=== PATIENT | male | born 1990 | race Caucasian/White ===

== ENCOUNTER 2020-07-16 15:11 | Outpatient (REF) | payer OTHER, SELFPAY | END 2020-07-16 15:12 | disposition home or self-care (01) | LOC: HO.LAB 15:11 | PROVIDERS: Visit Provider Internal Medicine | DX: Z20.828 Contact with and (suspected) exposure to other viral communicable diseases (principal) | CPT/HCPCS: 87635; C9803; U0003 ==

== ENCOUNTER 2020-09-11 14:43 | Outpatient (REF) | payer OTHER, SELFPAY ==
[2020-09-11 15:08] LABS: COVID-19 Test Negative (Negative)
== END 2020-09-11 14:44 | disposition home or self-care (01) ==
LOC: HO.EMPCOV 14:43
PROVIDERS: Visit Provider Internal Medicine
DX: Z20.822 Contact with and (suspected) exposure to COVID-19 (principal)
CPT/HCPCS: 36415; 87635; C9803

== ENCOUNTER 2020-12-04 10:30 | Outpatient (REF) | payer OTHER, SELFPAY ==
[2020-12-04 11:06] LABS: COVID-19 Test Negative (Negative); IDNOW Serial# 55D5AD1C
== END 2020-12-04 10:31 | disposition home or self-care (01) ==
LOC: HO.EMPCOV 10:30
PROVIDERS: Visit Provider Internal Medicine
DX: Z20.822 Contact with and (suspected) exposure to COVID-19 (principal)
CPT/HCPCS: 36415; 87635; C9803

== ENCOUNTER → 2021-05-17 11:23 | Outpatient (BNVA) | payer OTHER, SELFPAY | PROVIDERS: Visit Provider Physician Assistant Medical | DX: Z13.89 Encounter for screening for other disorder (principal) | CPT/HCPCS: 99202 ==

== ENCOUNTER → 2021-05-20 14:58 | Outpatient (BNVA) | payer OTHER, SELFPAY | PROVIDERS: Visit Provider Internal Medicine | DX: Z13.89 Encounter for screening for other disorder (principal) | CPT/HCPCS: 99213 ==

== ENCOUNTER → 2021-05-27 13:04 | Outpatient (BNVA) | payer OTHER, SELFPAY | PROVIDERS: Visit Provider Internal Medicine | DX: Z13.89 Encounter for screening for other disorder (principal) | CPT/HCPCS: 99213 ==

== ENCOUNTER → 2021-06-13 13:11 | Outpatient (BNVA) | payer OTHER, SELFPAY | PROVIDERS: Visit Provider Internal Medicine | DX: Z13.89 Encounter for screening for other disorder (principal) | CPT/HCPCS: 99213 ==

== ENCOUNTER → 2021-06-24 13:01 | Outpatient (BNVA) | payer OTHER, SELFPAY | PROVIDERS: Visit Provider Internal Medicine | DX: Z13.89 Encounter for screening for other disorder (principal) | CPT/HCPCS: 99213 ==

== ENCOUNTER 2021-06-28 15:00 | Outpatient (RCR) | payer OTHER, SELFPAY ==
--- NOTE | 2021-06-03 13:45 | MHC.PT.EP ---
[facility] [place] Office [place] Office [place] Office [address] Daryl Alfred [address] [phone] F: [phone] F: [phone] F: [phone] F: [phone] Physical Therapy Plan of Care Date of Evaluation: Date of Surgery: n/a Diagnosis: lower T spine strain Assessment: Patient is a 30 year old male presenting to PT with complaints of pain in his lower thoracic spine. Pt reports onset of pain began 05/17/2021 due to transferring a pt at work. He presents today with impairments in hip strength, pain, lumbar ROM, +ttp thoracic area, posture, and decreased quad muscle length. 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 Pt expresses jail goal of returning to baseline, and is motivated to work towards this in PT. Clinical presentation today is most consistent with signs and sx associated with low thoracic spine strain and pt will benefit from skilled PT to address the following problems and impairments noted upon evaluation: hip strength, pain, lumbar ROM, +ttp thoracic area, posture, and decreased quad muscle length. These problems limit the patient with the following functional activities: work, lifting, and sleep. The prescribed treatment plan of care is medically necessary. Co-morbidities of T2DM, asthma, R bundle branch blockage, HTN were identified and taken into considerations of plan of care. Pt was educated on HEP, role of PT, prognosis, POC. Frequency and Duration: The patient will be seen 2x week x 4 weeks Short Term Goals: Pt will demonstrate improved postural awareness by sitting with biomechanically correct posture without cues throughout session to improve overall postural function in 2 weeks. Pt will demonstrate improved TA contraction in hooklying, sitting, and standing in 2 weeks. Pt will demonstrate improved hip strength by 1/3 MMT for improved lumbopelvic stability in 2 weeks. Pt will demonstrate lumbar AROM in available range with min to no pain in 2 weeks. Pt will demonstrate improved quad muscle length by 20 degrees in 2 weeks. Nursing Home Goals: Pt will demonstrate ability to work a full day with pain <3/10in 4 weeks to allow return to work. Pt will demonstrate ability to sleep through the night with min to no pain in 4 weeks to allow return to PLOF. Pt will demonstrate ability to lift 20# floor to waist with good mechanics in 4 weeks to reduce risk of reinjury. Treatment Plan: Modalities to reduce pain, spasms and effusion. Manual therapy to restore motion and function. Therapeutic exercise to improve strength and flexibility. Neuromuscular re-education for posture and balance. Therapeutic activities to return to functional activities of daily living. Electronically signed by: Magalys George, PT, DPT, ATC Please sign and return to therapist. Thank you for your referral.
--- NOTE | 2021-06-28 16:02 | MHC.PT.DC ---
[facility] [place] Office [place] Office [place] Office [address] Daryl Alfred [address] [phone] F: [phone] F: [phone] F: [phone] F: [phone] Physical Therapy Discharge Report Diagnosis: lower T spine strain Date of Surgery: n/a Date of Evaluation: 06/03/21 Date of Discharge: 06/28/21 Treatments to Date: 7 Cancellations to Date: 0 No Shows to Date: 0 Discharge Status: Achieved Goals Improved Function Independent with HEP Discharge Summary: Pt has made good progress since beginning skilled PT. He is no longer having pain at rest and has met the majority of his functional goals. His pain, ROM, core strength, and hip strength have all improved. Overall he is happy with his progress at this point and is returning to work on Thursday at full duty. He is independent in his HEP and is no longer experiencing pain. At this time max benefits of PT have been provided and skilled PT is no longer indicated at this time. Pt to be d/c to independent in HEP and is in agreement with this d/c today. Electronically signed by: Magalys George, PT, DPT, ATC Please sign and return to therapist. Thank you for your referral.
== END 2021-06-28 16:02 | disposition home or self-care (01) ==
LOC: HO.PT 15:00
PROVIDERS: Visit Provider Internal Medicine
DX: S29.012D Strain of muscle and tendon of back wall of thorax, subsequent encounter (principal)
CPT/HCPCS: 97110; 97140; 97161; 97530

== ENCOUNTER 2021-08-23 13:04 | Outpatient (REF) | payer OTHER, SELFPAY ==
[2021-08-23 14:00] LABS: COVID-19 Test Negative (Negative); IDNOW Serial# 9DD0AD1C
== END 2021-08-23 13:05 | disposition home or self-care (01) ==
LOC: HO.LAB 13:04
PROVIDERS: PCP Internal Medicine; Visit Provider Internal Medicine
DX: Z20.822 Contact with and (suspected) exposure to COVID-19 (principal)
CPT/HCPCS: 36415; 87635

== ENCOUNTER 2021-10-17 04:11 | Emergency (ER) | payer OTHER, SELFPAY ==
--- NOTE | ~2021-10-17 | XR_ITS ---
EXAMINATION: XR CHEST CLINICAL INFORMATION: Shortness of breath COMPARISON: 03/30/2020 TECHNIQUE: Frontal view of the chest was obtained. FINDINGS: Normal symmetric lung volumes. No parenchymal consolidation. No pleural effusion. No pneumothorax. Cardiomediastinal silhouette and pulmonary vascularity are within normal limits. No acute osseous abnormalities. XR/XR chest 1V IMPRESSION: No acute findings.
[2021-10-17 04:18] VITALS: BP 151/94; PULSE 98; RESP 24; TEMP 36.4; O2SAT 97; BMI 49.4
--- NOTE | 2021-10-17 04:28 | ECG_ITS ---
Test Reason : PALPUTATIONS Blood Pressure : / mmHG Vent. Rate : 090 BPM Atrial Rate : 090 BPM P-R Int : 146 ms QRS Dur : 086 ms QT Int : 364 ms P-R-T Axes : 038 -12 -49 degrees QTc Int : 445 ms Normal sinus rhythm Nonspecific T wave abnormality Abnormal ECG When compared with ECG of 30-MAR-2020 21:51, No significant change was found Referred By: Jessica Peter Electronically Signed By:REGAN SMITH MD
[2021-10-17 04:38] LABS: Basophils Percent Auto 0.5 % (0-2); Eosinophils Absolute Auto 0.2 X10*3/uL (0.0-0.4); Eosinophils Percent Auto 2.1 % (0-4); Hematocrit 42.6 % (42.0-52.0); Hemoglobin 15.6 g/dl (14.0-18.0); Imm Gran Abs Auto 0.02 X10*3/uL (0.00-0.03); Imm Gran Pct Auto 0.3 % (0.0-0.4); Lymphocytes Absolute Auto 2.4 X10*3/uL (1.2-4.9); Lymphocytes Percent Auto 30.6 % (20-40); MANUAL DIFF FLAG NO; Mean Corpuscular HGB Conc 36.6 g/dl (31.0-36.0); Mean Corpuscular Hemoglobin 30.6 pg (27.0-33.0); Mean Corpuscular Volume 83.7 fL (80.0-98.0); Mean Platelet Volume 10.3 fL (9.4-12.4); Monocytes Absolute Auto 0.7 X10*3/uL (0.1-1.2); Monocytes Percent Auto 8.4 % (2-11); Neutrophils Absolute Auto 4.5 x10*3/uL (2.0-8.3); Neutrophils Percent Auto 58.1 % (45-73); Platelet Count 281 X10*3/uL (160-400); Red Blood Count 5.09 X10*6/uL (4.60-5.80); Red Cell Distribution Width 13.7 % (11.0-16.0); White Blood Count 7.8 X10*3/uL (4.8-10.8)
[2021-10-17 05:06] LABS: Alanine Aminotransferase 63 U/L (0-40); Albumin Level 4.3 g/dL (3.5-5.0); Alkaline Phosphatase 105 U/L (39-117); Anion Gap 15 (12-20); Aspartate Amino Transferase 35 U/L (5-37); Bilirubin Total 0.5 mg/dL (0.0-1.0); Blood Urea Nitrogen 12 mg/dL (9-16); Calcium 9.5 mg/dL (8.4-10.2); Carbon Dioxide 21 mmol/L (22-29); Chloride 106 mmol/L (96-108); Creatinine Clr Calc Pharmacy 148.6; Estimated Glomerular Filt Rate > 60; Glucose Random 131 mg/dL (60-115); Potassium 4.4 mmol/L (3.3-5.1); Sodium 138 mmol/L (135-145)
--- NOTE | 2021-10-17 05:43 | ED.ARRPALP ---
HPI - Arrhythmia/Palpitations General Chief Complaint: Arrhythmia/Palpitations Stated Complaint: Sob/Palpitations Time Seen by Provider: 10/17/21 04:28 Source: patient Mode of arrival: ambulatory History of Present Illness HPI narrative: 31-year-old male who presents with shortness of breath and palpitations that started on awakening and lasted approximately 2 minutes without diaphoresis, dizziness, chest pain and patient states that this has happened previously. He states that he did try 1 puff of albuterol but did not have any success. Patient states that he has recently undergone a sleep study that did not find obstructive sleep apnea. Related Data Allergies Allergy/AdvReac Type Severity Reaction Status Date / Time tomato [TOMATO] Allergy Severe HIVES, Verified 10/17/21 04:20 DIFFICULTY BREATHING, THROAT SWELLING Review of Systems Review of Systems: Pertinent positives and negatives as stated in HPI 10 point review of systems is otherwise negative. [facility] Past Medical History Source: nursing notes reviewed Social History Social History Advance Directives: No Physical Exam Vital Signs: Vital Signs: Last Vital Signs Temp 98.2 F 10/17/21 06:11 Pulse 84 10/17/21 06:11 Resp 20 10/17/21 06:11 BP 133/69 10/17/21 06:11 Pulse Ox 95 10/17/21 06:11 BMI result Body Mass Index 49.4 VITAL SIGNS: Reviewed. GENERAL: Obese, Well developed, well nourished, in mild distress. HEAD: Normocephalic/atraumatic EYES: PERRLA, EOMI OROPHARYNX: no oral lesions noted, posterior pharynx clear LUNGS: Normal breath sounds, no tachypnea, No adventitious sounds or accessory muscle use. SpO2<95> CARDIOVASCULAR: Regular rate and rhythm without noted murmurs ABDOMEN: Soft, non-tender, non-distended with bowel sounds. MUSCULOSKELETAL: No tenderness, deformities, or effusions noted on gross inspection. EXTREMITIES: No cyanosis, clubbing or edema. SKIN: Inspection of the skin reveals no rashes NEUROLOGIC: Alert and oriented x 4. Strength and sensation to light touch were grossly intact x 4. Course Course Course Narrative: 31-year-old male with history and clinical presentation suggestive of possible anxiety, obstructive sleep apnea although patient reports recent negative study, perc is negative. On review of all investigations there are no acute findings and on re-evaluation patient has had complete resolution of all symptoms and is otherwise discharged home in stable condition with instructions follow-up primary care provider. MDM - Arrhythmia/Palpitations Lab Data Result diagrams: 10/17/21 04:35 10/17/21 04:35 Labs: Lab Results 10/17/21 10/17/21 10/17/21 Range/Units 04:35 04:35 04:35 WBC 7.8 (4.8-10.8) X10*3/uL RBC 5.09 (4.60-5.80) X10*6/uL Hgb 15.6 (14.0-18.0) g/dl Hct 42.6 (42.0-52.0) % MCV 83.7 (80.0-98.0) fL MCH 30.6 (27.0-33.0) pg MCHC 36.6 H (31.0-36.0) g/dl RDW 13.7 (11.0-16.0) % Plt Count 281 (160-400) X10*3/uL MPV 10.3 (9.4-12.4) fL Immature Gran % (Auto) 0.3 (0.0-0.4) % Neut % (Auto) 58.1 (45-73) % Lymph % (Auto) 30.6 (20-40) % [place] % (Auto) 8.4 (2-11) % Eos % (Auto) 2.1 (0-4) % Baso % (Auto) 0.5 (0-2) % Lymph # (Auto) 2.4 (1.2-4.9) X10*3/uL [place] # (Auto) 0.7 (0.1-1.2) X10*3/uL Eos # (Auto) 0.2 (0.0-0.4) X10*3/uL Baso # (Auto) 0.0 (0.0-0.2) X10*3/uL Abs Immat Gran (auto) 0.02 (0.00-0.03) X10*3/uL Absolute Neuts (auto) 4.5 (2.0-8.3) x10*3/uL Absolute Nucleated RBC 0.000 (0.0-0.012) X10*3/uL Nucleated RBC % (auto) 0.0 (0.0-0.2) /100WBC Sodium 138 (135-145) mmol/L Potassium 4.4 (3.3-5.1) mmol/L Chloride 106 (96-108) mmol/L Carbon Dioxide 21 L (22-29) mmol/L Anion Gap 15 (12-20) BUN 12 (9-16) mg/dL Creatinine 1.00 (0.5-1.4) mg/dL Estim Creat Clear Calc 148.6 Estimated GFR > 60 Random Glucose 131 H (60-115) mg/dL Calcium 9.5 (8.4-10.2) mg/dL Total Bilirubin 0.5 (0.0-1.0) mg/dL AST 35 (5-37) U/L ALT 63 H (0-40) U/L Alkaline Phosphatase 105 (39-117) U/L Troponin I High Sens 3.5 (<3.5-35.0) ng/L Total Protein 9.0 H (6.5-8.0) g/dL Albumin 4.3 (3.5-5.0) g/dL ECG Data Attestation: I personally reviewed and interpreted this ECG as follows: Prior ECG tracings: not available for review Interpretation: Normal sinus rhythm, HR-90, no STEMI, MS/QRS/QTC are within normal limits. Discharge Plan Discharge Clinical Impression: Palpitations, Anxiety Patient Disposition: Home, Self-Care Instructions: Heart Palpitations (ED) Additional Instructions: 1. Resume all home medications as prescribed. 2. Follow-up with your primary care provider for re-evaluation and further outpatient management. Return to the ER for worsening symptoms. Referrals: Reshma Keller MD [Primary Care Provider] - 2 days
[2021-10-17 06:11] VITALS: BP 133/69; PULSE 84; RESP 20; TEMP 36.8; O2SAT 95
[2021-10-17 06:28] LABS: Troponin-I High Sensitivity 3.5 ng/L (<3.5-35.0)
== END 2021-10-17 07:28 | disposition home or self-care (01) ==
PROVIDERS: Emergency Provider Student in an Organized Health Care Education/Training Program; PCP Internal Medicine
DX: I49.9 Cardiac arrhythmia, unspecified (principal); R06.02 Shortness of breath; F41.1 Generalized anxiety disorder; F43.0 Acute stress reaction; Z79.899 Other long term (current) drug therapy
CPT/HCPCS: 36415; 71045; 80053; 84484; 85025; 93005; 99283; 99284

== ENCOUNTER 2021-12-10 05:39 | Emergency (ER) | payer OTHER, SELFPAY ==
--- NOTE | ~2021-12-10 | CT_ITS ---
EXAMINATION: CT HEAD WITHOUT CONTRAST CLINICAL INFORMATION: Dizziness COMPARISON: None TECHNIQUE: Contiguous axial imaging was performed from the skull base to vertex without intravenous administration of contrast. This CT examination was performed using dose optimization techniques as appropriate, variously including the following: *Automated exposure control *Adjustment of mA and/or kV according to patient size (this includes techniques or standardized protocols for targeted exams where dose is matched to indication/reason for exam; i.e. extremities or head) *Use of iterative reconstruction technique DLP: 899 mGy-cm FINDINGS: There is no evidence of acute intracranial hemorrhage or territorial infarction. No abnormal mass effect or midline shift is seen. Liu to white matter differentiation is well preserved. No extra-axial fluid collections are identified. The ventricles are normal in size. There is no abnormal attenuation within the brain parenchyma. The osseous structures and soft tissues are normal. Mucus retention cyst within the left maxillary sinus. Paranasal sinuses and mastoid air cells are otherwise clear. CT/CT head/brain wo con IMPRESSION: No acute intracranial pathology.
[2021-12-10 05:50] VITALS: BP 199/107; PULSE 104; RESP 18; TEMP 37.1; O2SAT 98; BMI 48.6
--- NOTE | 2021-12-10 05:54 | ECG_ITS ---
Test Reason : dizziness Blood Pressure : / mmHG Vent. Rate : 095 BPM Atrial Rate : 095 BPM P-R Int : 150 ms QRS Dur : 090 ms QT Int : 368 ms P-R-T Axes : 050 -10 -30 degrees QTc Int : 462 ms Normal sinus rhythm Nonspecific T wave abnormality Prolonged QT Abnormal ECG When compared with ECG of 17-OCT-2021 04:24, No significant change was found Referred By: Generic ED Physician Electronically Signed By:Trino Dinh
[2021-12-10 06:00] VITALS: BP 154/93; PULSE 95; RESP 23; O2SAT 98
[2021-12-10 06:08] LABS: Hematocrit 43.8 % (42.0-52.0); Hemoglobin 15.6 g/dl (14.0-18.0); Mean Corpuscular HGB Conc 35.6 g/dl (31.0-36.0); Mean Corpuscular Hemoglobin 29.9 pg (27.0-33.0); Mean Corpuscular Volume 84.1 fL (80.0-98.0); Mean Platelet Volume 10.3 fL (9.4-12.4); Platelet Count 302 X10*3/uL (160-400); Red Blood Count 5.21 X10*6/uL (4.60-5.80); Red Cell Distribution Width 13.6 % (11.0-16.0); White Blood Count 9.2 X10*3/uL (4.8-10.8)
[2021-12-10 06:30] LABS: Alanine Aminotransferase 66 U/L (0-40); Albumin Level 4.4 g/dL (3.5-5.0); Alkaline Phosphatase 101 U/L (39-117); Anion Gap 16 (12-20); Aspartate Amino Transferase 32 U/L (5-37); Bilirubin Total 0.3 mg/dL (0.0-1.0); Blood Urea Nitrogen 14 mg/dL (9-16); Calcium 9.2 mg/dL (8.4-10.2); Carbon Dioxide 17 mmol/L (22-29); Chloride 109 mmol/L (96-108); Creatinine Clr Calc Pharmacy 131.4; Estimated Glomerular Filt Rate > 60; Glucose Random 131 mg/dL (60-115); Potassium 4.1 mmol/L (3.3-5.1); Sodium 138 mmol/L (135-145); Total Protein 8.4 g/dL (6.5-8.0)
--- NOTE | 2021-12-10 06:33 | ED.DIZZY ---
HPI - Dizziness General Chief Complaint: General Medical Stated Complaint: nausea, vertigo ? losing control of eye movement Time Seen by Provider: 12/10/21 06:33 Source: patient Mode of arrival: ambulatory Limitations: no limitations History of Present Illness MD elicited complaint: dizziness, lightheadedness and vertigo Pertinent past history: other (switched off trazodone 150mg to a new sleeping medication - doxepin) Onset (ago): day(s) (2) Timing: sudden onset and intermittent Severity: severe Description: sense of movement and room spinning Context: change in medication and change in body position History of similar symptoms: No Exacerbating factors: movement/ambulation, change in body position and keeping eyes open Relieving factors: remaining still, rest, lying down and keeping eyes closed Associated symptoms: other (felt his eyes were moving, couldn't get out of bed, tried to stand and laid himself on the ground. ) Related Data Allergies Allergy/AdvReac Type Severity Reaction Status Date / Time tomato [TOMATO] Allergy Severe HIVES, Verified 10/17/21 04:20 DIFFICULTY BREATHING, THROAT SWELLING Review of Systems Review of Systems: Constitutional : No Weight loss, No Fever, No Chills, No Fatigue, No Malaise ENT/Mouth : No sore throat, No Rhinorrhea Eyes: No Eye Pain, No Swelling, No Redness Cardiovascular : No Chest Pain, No SOB, No Dyspnea on Exertion, No Orthopnea, No Edema, No Palpitations Respiratory : No Cough, No Sputum, No Wheezing Gastrointestinal : No Nausea, No Vomiting, No Diarrhea, No Constipation, No abdominal Pain, No Hematochezia, No Melena Genitourinary : No Dysuria, No Urinary Frequency, No Hematuria, Musculoskeletal : No joint pain, No Myalgias, No Joint Swelling Skin : No Skin Lesions, No rash Neuro : No Weakness, No Numbness, pos Dizziness, No Headache Psych : No Anxiety/Panic, No Depression Heme/Lymph: No Bruising, No Bleeding,No Lymphadenopathy Endocrine : No Polyuria, No Polydipsia All other systems reviewed and are negative [facility], [facility] Past Medical History Medical History Anxiety Diabetes HTN (hypertension) Social History Social History (Updated 12/10/21 @ 06:45 by Joi Beck DO) Patient Tobacco Use Status: Never used Tobacco Advance Directives: No Physical Exam Vital Signs: Vital Signs: Last Vital Signs Temp 97.5 F 12/10/21 08:13 Pulse 85 12/10/21 08:13 Resp 16 12/10/21 08:13 BP 113/57 L 12/10/21 08:13 Pulse Ox 98 12/10/21 08:13 BMI result Body Mass Index 48.6 Appearance: Alert. Oriented X3. No acute distress. Eyes: Pupils equal, round and reactive to light. no nystagmus ENT: Pharynx normal. normal TMs Neck: Normal inspection. Neck supple. CVS: Normal heart rate and rhythm. Pulses normal. Respiratory: No respiratory distress. Breath sounds normal. Abdomen: Soft and nontender. Skin: Skin warm and dry. Normal skin color. Normal skin turgor. Extremities: No lower extremity edema. No calf ttp Neuro: Oriented X 3. No motor deficit. No sensory deficit. Course Course Course Narrative: CT head is negative at this time - states he is dizzy and doesn't want to get up. able to to get up - improved stable for DC intermittent dizziness - no neurologic changes no vision changes no numbness weakness, no drift on exam, steady gait on way out no ataxia doubt posterior stroke. did discuss ? abrupt cessation of trazodone as symptoms MDM - Dizziness MDM Narrative Medical decision making narrative: 31 yo male with hx of HTN, just switched from trazodone 150mg to another sleep aid here c/o dizziness intermittent x 2 days, fell out of bed yesterday no injury, c/o nystagmus this AM. Symptoms resolved - neurologically intact denies recent URI will obtain EKG, basic labs, CT head for mass. PO meclizine his symptoms are intermittent with room spinning and nystagmus seems peripheral to me at this time. No other neurologic symptoms. Lab Data Result diagrams: 12/10/21 06:04 12/10/21 06:04 Labs: Lab Results 12/10/21 12/10/21 Range/Units 06:04 06:04 WBC 9.2 (4.8-10.8) X10*3/uL RBC 5.21 (4.60-5.80) X10*6/uL Hgb 15.6 (14.0-18.0) g/dl Hct 43.8 (42.0-52.0) % MCV 84.1 (80.0-98.0) fL MCH 29.9 (27.0-33.0) pg MCHC 35.6 (31.0-36.0) g/dl RDW 13.6 (11.0-16.0) % Plt Count 302 (160-400) X10*3/uL MPV 10.3 (9.4-12.4) fL Absolute Nucleated RBC 0.000 (0.0-0.012) X10*3/uL Nucleated RBC % (auto) 0.0 (0.0-0.2) /100WBC Sodium 138 (135-145) mmol/L Potassium 4.1 (3.3-5.1) mmol/L Chloride 109 H (96-108) mmol/L Carbon Dioxide 17 L (22-29) mmol/L Anion Gap 16 (12-20) BUN 14 (9-16) mg/dL Creatinine 1.12 (0.5-1.4) mg/dL Estim Creat Clear Calc 131.4 Estimated GFR > 60 Random Glucose 131 H (60-115) mg/dL Calcium 9.2 (8.4-10.2) mg/dL Total Bilirubin 0.3 (0.0-1.0) mg/dL AST 32 (5-37) U/L ALT 66 H (0-40) U/L Alkaline Phosphatase 101 (39-117) U/L Total Protein 8.4 H (6.5-8.0) g/dL Albumin 4.4 (3.5-5.0) g/dL ECG Data Attestation: I personally reviewed and interpreted this ECG as follows: ECG interpretation date: 12/10/21 ECG interpretation time: 06:38 Interpretation: Rate: 95 Rhythm: NSR [place]: left Normal P waves. Normal JOSI. Normal QRS complex. ST T wave : no MIKE, nonspecific qTC: slightly prolonged prior studies: no acute ischemia The study has been interpreted contemporaneously by me. . Discharge Plan Discharge Clinical Impression: Dizziness Patient Disposition: Home, Self-Care Instructions: Dizziness (ED) Additional Instructions: return to ED for any worsening symptoms or concerns CT head negative blood work and EKG within normal limits please talk to your doctor about at stopping trazodone so quickly this could be contributing to some of your symptoms FINDINGS: There is no evidence of acute intracranial hemorrhage or territorial infarction. No abnormal mass effect or midline shift is seen. Liu to white matter differentiation is well preserved. No extra-axial fluid collections are identified. The ventricles are normal in size. There is no abnormal attenuation within the brain parenchyma. The osseous structures and soft tissues are normal. Mucus retention cyst within the left maxillary sinus. Paranasal sinuses and mastoid air cells are otherwise clear. ? CT/CT head/brain wo con IMPRESSION: No acute intracranial pathology. Stand Alone Forms: Work/School Release Interventions: ED Discharge Assessment Last Done: 12/10/21 08:48 Discharge Date/Time: 12/10/21 08:50
[2021-12-10] MEDS: Meclizine HCl 25 MG TABLET PO (07:02)
[2021-12-10 07:04] VITALS: BP 144/58; PULSE 88; RESP 20; O2SAT 98
[2021-12-10 08:13] VITALS: BP 113/57; PULSE 85; RESP 16; TEMP 36.4; O2SAT 98
== END 2021-12-10 08:50 | disposition home or self-care (01) ==
PROVIDERS: Emergency Provider Emergency Medicine; PCP Internal Medicine
DX: R42 Dizziness and giddiness (principal); E11.9 Type 2 diabetes mellitus without complications; I10 Essential (primary) hypertension
CPT/HCPCS: 36415; 70450; 80053; 85027; 93005; 99284

== ENCOUNTER 2022-10-01 18:13 | Emergency (ER) | payer OTHER, SELFPAY ==
--- NOTE | ~2022-10-01 | XR_ITS ---
EXAMINATION: XR HAND, RIGHT CLINICAL INFORMATION: Injury, pain COMPARISON: None TECHNIQUE: PA, lateral, and oblique views of the right hand. FINDINGS: The bones and soft tissues are normal. No fracture. Alignment is anatomic. Joint spaces are maintained. No erosions or soft tissue calcifications. XR/XR hand RT 2V IMPRESSION: Normal right hand.
[2022-10-01 18:36] VITALS: BP 201/104; PULSE 110; RESP 20; TEMP 36.7; O2SAT 98; BMI 48.6
--- NOTE | 2022-10-01 18:37 | ED_ITS ---
HPI - Extremity Injury (Upper) General Chief Complaint: Extremity Injury, Upper Stated Complaint: broken hand? work inj here Time Seen by Provider: 10/01/22 18:47 Related Data Previous Rx's Medication Instructions Recorded ketorolac 10 mg tablet 10 mg PO TID PRN pain 5 days #14 10/01/22 tabs Allergies Allergy/AdvReac Type Severity Reaction Status Date / Time tomato [TOMATO] Allergy Severe HIVES, Verified 10/17/21 04:20 DIFFICULTY BREATHING, THROAT SWELLING PMFSH Past Medical History Medical History Anxiety Diabetes HTN (hypertension) Social History Social History Patient Tobacco Use Status: Never used Tobacco Advance Directives: No Advance Directives Information Provided: Yes Physical Exam Vital Signs: Vital Signs: Last Vital Signs Temp 98.1 F 10/01/22 18:36 Pulse 110 H 10/01/22 18:36 Resp 20 10/01/22 18:36 BP 201/104 H 10/01/22 18:36 Pulse Ox 98 10/01/22 18:36 O2 Del Method 10/01/22 18:36 BMI result Body Mass Index 48.6 Course Course Course Narrative: This is a rapid medical exam. Deferred additional HPI, ROS, PE to primary provider, 32 yo male left hand dominant with history of DM here with left hand pain after a crush injury. Will check x-ray s Medications Administered Discontinued Medications Generic Name Dose Route Start Last Admin Trade Name Freq PRN Reason Stop Dose Admin Ketorolac Tromethamine 30 mg 10/01/22 19:19 10/01/22 19:41 Ketorolac Tromethamine 15 Mg/Ml Vial IM 10/01/22 19:20 30 mg ONCE ONE Administration Discharge Plan Discharge Clinical Impression: Hand pain, right, Work related injury Patient Disposition: Home, Self-Care Instructions: Arthralgia (ED) Additional Instructions: Take your medications as prescribed. If you were prescribed antibiotics today, it is important that you take your medication to their entirety, do not skip any doses, do not finish them early. Follow-up with your primary care provider this week. Please follow-up with the orthopedic team in a week if pain does not improve. Return to the emergency department with new or worsening symptoms. Such as fevers, chills, chest pain, shortness of breath, nausea, vomiting, dizziness, headache, vision changes, lethargy In case of emergency call 911 Please wear your finger splint as instructed. Toradol has been sent to your pharmacy, you tolerated this well in the dep artment. Please take this as prescribed do not take this with ibuprofen, or other NSAIDs, do not mix this with alcohol. Side effects of this medication including increased risk for bleeding and possible kidney injury. XR/XR hand RT 2V IMPRESSION: Normal right hand. Prescriptions: New ketorolac 10 mg tablet 10 mg PO TID PRN (Reason: pain) 5 Days Qty: 14 0RF Rx Instructions: Tolerated IM in the department Referrals: [facility] [place] Orthopedic Surgeons [Provider Group] - 1 week Reshma Keller MD [Primary Care Provider] - 2 days Interventions: ED Discharge Assessment Last Done: 10/01/22 20:04 Discharge Date/Time: 10/01/22 20:27
--- NOTE | 2022-10-01 19:19 | ED_ITS ---
HPI - Extremity Problem General Chief complaint: Extremity Injury, Upper Stated complaint: broken hand? work inj here Time Seen by Provider: 10/01/22 18:47 Source: patient Mode of arrival: ambulatory Limitations: no limitations History of Present Illness HPI Narrative: This is a 32-year-old male hx of dm, htn, anxiety presenting with complaints pain to dorsal aspect of right hand status post work related injury just prior to arrival. Patient tells me he was leaving a closet and jammed his right hand into a wooden door, since then has been experiencing pain over the 5th metacarpal area, he also notes that there is a little bit of swelling overlying the area, pain is worse with movement of pinky better at rest. Patient tells me he has had a boxer fracture in the past and this feels like the time at a boxe r's fracture. Denies numbness and tingling at this time. No previous issues with this right hand. Patient right hand dominat. Incident report on file per patient. Related Data Previous Rx's Medication Instructions Recorded ketorolac 10 mg tablet 10 mg PO TID PRN pain 5 days #14 10/01/22 tabs Allergies Allergy/AdvReac Type Severity Reaction Status Date / Time tomato [TOMATO] Allergy Severe HIVES, Verified 10/17/21 04:20 DIFFICULTY BREATHING, THROAT SWELLING Review of Systems Review of Systems: Constitutional : No Weight loss, No Fever, No Chills, No Fatigue, No Malaise ENT/Mouth : No sore throat, No Rhinorrhea Eyes: No Eye Pain, No Swelling, No Redness Cardiovascular : No Chest Pain, No SOB, No Dyspnea on Exertion, No Orthopnea, No Edema, No Palpitations Respiratory : No Cough, No Sputum, No Wheezing Gastrointestinal : No Nausea, No Vomiting, No Diarrhea, No Constipation, No abdominal Pain, No Hematochezia, No Melena Genitourinary : No Dysuria, No Urinary Frequency, No Hematuria, Musculoskeletal : + joint pain, No Myalgias, + Joint Swelling Skin : No Skin Lesions, No rash Neuro : No Weakness, No Numbness, No Dizziness, No Headache Psych : No Anxiety/Panic, No Depression All other systems reviewed and are negative Yes all other systems are reviewed and are negative [facility] Past Medical History Attestation statement: The following information was validated with the patient. Source: old records reviewed and nursing notes reviewed Medical History Anxiety Diabetes HTN (hypertension) Social History Social History Patient Tobacco Use Status: Never used Tobacco Advance Directives: No Advance Directives Information Provided: Yes Physical Exam Vital Signs: Vital Signs: Last Vital Signs Temp 98.1 F 10/01/22 18:36 Pulse 110 H 10/01/22 18:36 Resp 20 10/01/22 18:36 BP 201/104 H 10/01/22 18:36 Pulse Ox 98 10/01/22 18:36 O2 Del Method 10/01/22 18:36 BMI result Body Mass Index 48.6 Patient is significantly hypertensive likely secondary to pain will repeat vital signs prior to discharge Appearance: Alert.? Oriented X3.? No acute distress.? Head: Normocephalic, atraumatic, no step-offs or deformities Eyes: Pupils equal, round and reactive to light.? CVS: Normal heart rate and rhythm.? Pulses normal.? Respiratory: No respiratory distress.? Breath sounds normal.? Abdomen: Soft and nontender.? Skin: Skin warm and dry.? Normal skin color.? Normal skin turgor.? Extremities: 5/5 strength to bilateral upper and lower extremities. Patient able to make a fist bilaterally. Normal opposition and repositioning bilaterally. Normal capillary refill less than 2 seconds equal bilateral to upper extremities. Full range of motion to fingers, wrist bilaterally. Patient reports pain with palpation overlying the right 5th metacarpal on the dorsal aspect. There is some overlying swelling to the dorsal aspect of 5th m etacarpal. No distracting injuries or gross abnormalities. No step-offs or deformities. Normal left hand. No wrist drop bilaterally. 2+ radial pulses equal bilateral. Neuro: Oriented X 3.? No motor deficit.? No sensory deficit. CN 2-12 intact Course Reevaluation(s) Reevaluation #1: X-ray of hand unremarkable. No fractures or dislocations. Patient will be placed in a finger splint. Advised him to return with new or worsening symptoms. Advised him to follow-up with the were connection as this was a work related injury. Will also give him orthopedic follow-up if pain does not improve in a week or 2. Educated patient on diagnosis and treatment plan, answered all question, patient verbalizes understanding. At this time patient will be discharged home, advised to return with new or worsening symptoms. Educated on worrisome signs and symptoms and when to return. At this time I lashon hartmann comfortable discharge home. Time: 19:58 Medications Administered Discontinued Medications Generic Name Dose Route Start Last Admin Trade Name Waylon PRN Reason Stop Dose Admin Ketorolac Tromethamine 30 mg 10/01/22 19:19 10/01/22 19:41 Ketorolac Tromethamine 15 Mg/Ml Vial IM 10/01/22 19:20 30 mg ONCE ONE Administration Medical Decision Making Medical Decision Making [facility] Narrative: 192 32-year-old male presents with pain to right hand status post jamming his hand into a door, work related injury just prior to arrival Physical exam w/ 01/02 strength to bilateral upper and lower extremities. Patient able to make a fist bilaterally. Normal opposition and repositioning bilaterally. Normal capillary refill less than 2 seconds equal bilateral to upper extremities. Full range of motion to fingers, wrist bilaterally. Patient reports pain with palpation overlying the right 5th metacarpal on the dorsal aspect. There is some overlying swelling to the dorsal aspect of 5th metacarpal. No distracting injuries or gross abnormalities. No step-offs or deformities. Normal left hand. No wrist drop bilaterally. 2+ radial pulses equal bilateral. History and physical examination concerning for possible sprain/strain unlikely fracture, dislocation or acute ligament and tendon injury. No signs of threatened limb. Although patient's pressure was elevated likely secondary to pain I do not suspect intracranial hemorrhage, stroke, hypertensive urgency or emergency. Plan at this time imaging. Will give Toradol for pain Differential Diagnosis Differential Diagnoses: The differential diagnosis associated with the presentation includes History and physical examination concerning for possible sprain/strain unlikely fracture, dislocation or acute ligament and tendon injury. No signs of threatened limb. Although patient's pressure was elevated likely secondary to pain I do not suspect intracranial hemorrhage, stroke, hypertensive urgency or emergency. Admission/Observation Consideration of admission/observation: Escalation of care including admission/observation considered Critical Care Time Critical Care Time Critical Care Time: No Discharge Plan Discharge Clinical Impression: Hand pain, right, Work related injury Patient Disposition: Home, Self-Care Instructions: Arthralgia (ED) Additional Instructions: Take your medications as prescribed. If you were prescribed antibiotics today, it is important that you take your medication to their entirety, do not skip any doses, do not finish them early. Follow-up with your primary care provider this week. Please follow-up with the orthopedic team in a week if pain does not improve. Return to the emergency department with new or worsening symptoms. Such as fevers, chills, chest pain, shortness of breath, nausea, vomiting, dizziness, headache, vision changes, lethargy In case of emergency call 911 Please wear your finger splint as instructed. Toradol has been sent to your pharmacy, you tolerated this well in the department. Please take this as prescribed do not take this with ibuprofen, or other NSAIDs, do not mix this with alcohol. Side effects of this medication including increased risk for bleeding and possible kidney injury. XR/XR hand RT 2V IMPRESSION: Normal right hand. Prescriptions: New ketorolac 10 mg tablet 10 mg PO TID PRN (Reason: pain) 5 Days Qty: 14 0RF Rx Instructions: Tolerated IM in the department Referrals: [facility] [Provider Group] - 1 week Reshma Keller MD [Primary Care Provider] - 2 days
[2022-10-01] MEDS: Ketorolac Tromethamine 15 MG/ML VIAL 30 MG IM (19:41)
== END 2022-10-01 20:27 | disposition home or self-care (01) ==
PROVIDERS: Emergency Provider Emergency Medicine; PCP Internal Medicine
DX: S69.91XA Unspecified injury of right wrist, hand and finger(s), initial encounter (principal); M79.641 Pain in right hand; Y29.XXXA Contact with blunt object, undetermined intent, initial encounter; Y93.9 Activity, unspecified; Y92.9 Unspecified place or not applicable; Y99.0 Civilian activity done for income or pay
CPT/HCPCS: 73120; 96372; 99283; 99284; J1885

== ENCOUNTER → 2022-10-02 14:33 | Outpatient (BNVA) | payer OTHER, SELFPAY | PROVIDERS: PCP Internal Medicine; Visit Provider Internal Medicine | DX: Z13.89 Encounter for screening for other disorder (principal) | CPT/HCPCS: 29085; 99203 ==

== ENCOUNTER 2022-10-09 01:37 | Inpatient (IN) | payer OTHER, SELFPAY ==
[2022-10-09] VITALS (30 sets, daily range): BP systolic 110–146; BP diastolic 56–95; PULSE 93–116; RESP 15–29; TEMP 36.2–37.4; O2SAT 87–98; BMI 48.6
--- NOTE | ~2022-10-09 | CT_ITS ---
EXAMINATION: CT ABDOMEN AND PELVIS WITH CONTRAST CLINICAL INFORMATION: Left lower quadrant pain COMPARISON: 03/30/2020 TECHNIQUE: Multidetector volumetric images were obtained from the superior aspect of the liver through the pubic symphysis following administration 100 mL of Omnipaque 350 intravenous contrast. Sagittal and coronal reformatted images were obtained on the technologist's workstation. Oral contrast: No This CT examination was performed using dose optimization techniques as appropriate, variously including the following: *Automated exposure control *Adjustment of mA and/or kV according to patient size (this includes techniques or standardized protocols for targeted exams where dose is matched to indication/reason for exam; i.e. extremities or head) *Use of iterative reconstruction technique DLP: 1019 mGy-cm FINDINGS: LUNG BASES: The visualized lung bases are unremarkable. LIVER, GALLBLADDER, AND BILIARY TREE: The liver is normal in size and shape. Hepatic steatosis. No focal liver lesions. No intra or extrahepatic biliary ductal dilatation is present. The gallbladder is unremarkable with no evidence of radiopaque gallstones, gallbladder wall thickening, or obvious pericholecystic inflammatory changes. PANCREAS: There is mild hazy increased attenuation of the peripancreatic fat about the pancreatic head. No acute necrotic or peripancreatic fluid collections. SPLEEN: Unremarkable. ADRENAL GLANDS: Unremarkable. KIDNEYS AND URETERS: The kidneys are normal in size, shape, and attenuation. No hydronephrosis, hydroureter, or calculi seen. No perinephric stranding. BLADDER: Unremarkable. GASTROINTESTINAL TRACT: Scattered left colonic diverticula. No evidence of diverticulitis. Normal stomach and small bowel. Normal appendix. ABDOMINAL WALL: No significant hernia is appreciated. LYMPH NODES: Normal. VASCULAR: Unremarkable. PELVIC VISCERA: Unremarkable. OSSEOUS STRUCTURES: Unremarkable. CT/CT abdomen pelvis w IV con IMPRESSION: Acute interstitial demonstrate pancreatitis predominantly involving the pancreatic head. Fleischner guidelines were followed.
--- NOTE | ~2022-10-09 | XR_ITS ---
EXAMINATION: XR CHEST CLINICAL INFORMATION: Fever COMPARISON: None TECHNIQUE: Frontal view of the chest was obtained. FINDINGS: No significant abnormality is noted involving the heart, lungs, mediastinum, bony thorax or soft tissues. XR/XR chest 1V IMPRESSION: Unremarkable examination.
--- NOTE | 2022-10-09 02:06 | ED.ABDPAIN ---
HPI - Abdominal Pain General Chief Complaint: Abdominal Pain Stated Complaint: fever, left abd pain, chills Time Seen by Provider: 10/09/22 02:05 Source: patient Mode of arrival: ambulatory Limitations: no limitations History of Present Illness HPI narrative: Patient type 2 diabetic for years usually diet controlled but lately been uncontrolled with HbA1c of 11.6 a week ago on metformin complaining of pain in left lower quadrant, mid abdomen since yesterday with nausea no vomiting noticed to have temperature of 100.9 degrees earlier today also has some running nose body aches moved his bowels today without significant pain no blood in the stool patient had similar pain few weeks ago patient did not seek any medical evaluation at that time patient denies any alcohol use does not know about his cholesterol Related Data Home Medications Medication Instructions Recorded Confirmed doxepin 25 mg capsule 1 cap PO BEDTIME 10/09/22 10/09/22 metformin 1,000 2XD 10/09/22 metoprolol succinate 50 mg 1.5 tab PO DAILY 10/09/22 10/09/22 tablet,extended release 24 hr Allergies Allergy/AdvReac Type Severity Reaction Status Date / Time tomato [TOMATO] Allergy Severe HIVES, Verified 10/09/22 01:47 DIFFICULTY BREATHING, THROAT SWELLING Review of Systems Review of Systems Yes all other systems are reviewed and are negative [facility] Past Medical History Medical History Anxiety Diabetes HTN (hypertension) Social History Social History Patient Tobacco Use Status: Never used Tobacco Smoked in Last 30 Days: No Use of substances other than those prescribed or required for medical reasons: No Advance Directives: No Physical Exam ED Vital Signs: Vital Signs - 24 hr 10/09/22 01:42 10/09/22 03:44 Temperature 97.2 F 99.2 F Pulse Rate 116 H 110 H Respiratory Rate 18 15 Blood Pressure 146/74 H 123/56 L Pulse Oximetry 98 94 Oxygen Delivery Method Room Air Room Air BMI result Body Mass Index 48.6 Appearance: Alert. Oriented X3. No acute distress. Eyes: No pallor or icterus ENT: Pharynx normal. Oral Mucosa moist Neck: Normal inspection. Neck supple. CVS: Normal heart rate and rhythm. Pulses normal. Respiratory: No respiratory distress. Equal air entry bilateral, no wheezing/rales/rhonchi Abdomen: Soft deep tenderness in mid abdomen and left lower quadrant no rebound tenderness slight guarding present Bowel sounds are present, no mass palpable, no CVA tenderness Skin: Skin warm and dry. Normal skin color. Normal skin turgor. Extremities: No lower extremity edema. No calf tenderness Neuro: Oriented X 3. No motor deficit. Medical Decision Making Medical Decision Making [facility] Narrative: Patient has acute pancreatitis secondary to hypertriglyceridemia of 1348 likely the cause. As a level is higher than 1000 with start the patient on gemfibrozil and insulin drip there is no ICU bed available at this time plan is to start on insulin drip recheck triglyceride level at 09:00 if level is less than 1000 will stop the drip and admit to the medical floor. Differential Diagnosis Diverticulitis/pancreatitis/IBS/enteritis Consult Healthcare Provider Chiropractor Assistant Lab Data [facility] Lab Attestation statement: I reviewed the patient's lab results. 10/09/22 02:08 10/09/22 02:08 Labs: Lab Results 10/09/22 10/09/22 10/09/22 Range/Units 02:03 02:08 02:08 WBC 12.7 H (4.8-10.8) X10*3/uL RBC 4.82 (4.60-5.80) X10*6/uL Hgb 14.1 (14.0-18.0) g/dl Hct 39.3 L (42.0-52.0) % MCV 81.5 (80.0-98.0) fL MCH 29.3 (27.0-33.0) pg MCHC 35.9 (31.0-36.0) g/dl RDW 14.1 (11.0-16.0) % Plt Count 260 (160-400) X10*3/uL MPV 10.9 (9.4-12.4) fL Immature Gran % (Auto) 0.4 (0.0-0.4) % Neut % (Auto) 78.9 H (45-73) % Lymph % (Auto) 11.6 L (20-40) % [place] % (Auto) 8.2 (2-11) % Eos % (Auto) 0.5 (0-4) % Baso % (Auto) 0.4 (0-2) % Lymph # (Auto) 1.5 (1.2-4.9) X10*3/uL [place] # (Auto) 1.0 (0.1-1.2) X10*3/uL Eos # (Auto) 0.1 (0.0-0.4) X10*3/uL Baso # (Auto) 0.1 (0.0-0.2) X10*3/uL Abs Immat Gran (auto) 0.05 H (0.00-0.03) X10*3/uL Absolute Neuts (auto) 10.1 H (2.0-8.3) x10*3/uL Absolute Nucleated RBC 0.000 (0.0-0.012) X10*3/uL Nucleated RBC % (auto) 0.0 (0.0-0.2) /100WBC Sodium 132 L (135-145) mmol/L Potassium 4.2 (3.3-5.1) mmol/L Chloride 97 (96-108) mmol/L Carbon Dioxide 17 L (22-29) mmol/L Anion Gap 22 H (12-20) BUN 10 (9-16) mg/dL Creatinine 1.14 (0.5-1.4) mg/dL Estim Creat Clear Calc 127.9 Estimated GFR > 60 POC Glucose 327 H (60-115) mg/dL Random Glucose 336 H (60-115) mg/dL Lactic Acid (0.5-2.0) mmol/L Calcium 9.6 (8.4-10.2) mg/dL Total Bilirubin 1.0 (0.0-1.0) mg/dL Direct Bilirubin < 0.2 (0.0-0.5) mg/dL AST 18 (5-37) U/L ALT 32 (0-40) U/L Alkaline Phosphatase 168 H (39-117) U/L Total Protein 7.5 (6.5-8.0) g/dL Albumin 4.1 (3.5-5.0) g/dL Triglycerides 1348 mg/dL Cholesterol 249 mg/dL LDL Cholesterol, Calc TNP HDL Cholesterol 24 mg/dL Lipase 126 H (8-78) U/L Urine Color Urine Appearance Urine pH (5.0-9.0) Ur Specific [place] (1.005-1.025) Urine Protein (Neg-Trace) mg/dL Urine Glucose (UA) (Negative) mg/dL Urine Ketones (Negative) mg/dL Urine Blood (Negative) Urine Nitrite (Negative) Ur Leukocyte Esterase (Negative) Urine RBC (0-2) /HPF Urine WBC (0-5) /HPF Ur Squamous Epith Cells (0-2) /HPF Urine Bacteria (None Seen) Hyaline Casts (0-2) /LPF Influenza Type A (PCR) (Negative) Influenza Type B (PCR) (Negative) RSV RNA Qual (PCR) (Negative) SARS-CoV-2 RNA (RT-PCR) (Negative) 10/09/22 10/09/22 10/09/22 Range/Units 02:16 02:16 03:51 WBC (4.8-10.8) X10*3/uL RBC (4.60-5.80) X10*6/uL Hgb (14.0-18.0) g/dl Hct (42.0-52.0) % MCV (80.0-98.0) fL MCH (27.0-33.0) pg MCHC (31.0-36.0) g/dl RDW (11.0-16.0) % Plt Count (160-400) X10*3/uL MPV (9.4-12.4) fL Immature Gran % (Auto) (0.0-0.4) % Neut % (Auto) (45-73) % Lymph % (Auto) (20-40) % [place] % (Auto) (2-11) % Eos % (Auto) (0-4) % Baso % (Auto) (0-2) % Lymph # (Auto) (1.2-4.9) X10*3/uL [place] # (Auto) (0.1-1.2) X10*3/uL Eos # (Auto) (0.0-0.4) X10*3/uL Baso # (Auto) (0.0-0.2) X10*3/uL Abs Immat Gran (auto) (0.00-0.03) X10*3/uL Absolute Neuts (auto) (2.0-8.3) x10*3/uL Absolute Nucleated RBC (0.0-0.012) X10*3/uL Nucleated RBC % (auto) (0.0-0.2) /100WBC Sodium (135-145) mmol/L Potassium (3.3-5.1) mmol/L Chloride (96-108) mmol/L Carbon Dioxide (22-29) mmol/L Anion Gap (12-20) BUN (9-16) mg/dL Creatinine (0.5-1.4) mg/dL Estim Creat Clear Calc Estimated GFR POC Glucose 293 H (60-115) mg/dL Random Glucose (60-115) mg/dL Lactic Acid 1.3 (0.5-2.0) mmol/L Calcium (8.4-10.2) mg/dL Total Bilirubin (0.0-1.0) mg/dL Direct Bilirubin (0.0-0.5) mg/dL AST (5-37) U/L ALT (0-40) U/L Alkaline Phosphatase (39-117) U/L Total Protein (6.5-8.0) g/dL Albumin (3.5-5.0) g/dL Triglycerides mg/dL Cholesterol mg/dL LDL Cholesterol, Calc HDL Cholesterol mg/dL Lipase (8-78) U/L Urine Color Urine Appearance Urine pH (5.0-9.0) Ur Specific [place] (1.005-1.025) Urine Protein (Neg-Trace) mg/dL Urine Glucose (UA) (Negative) mg/dL Urine Ketones (Negative) mg/dL Urine Blood (Negative) Urine Nitrite (Negative) Ur Leukocyte Esterase (Negative) Urine RBC (0-2) /HPF Urine WBC (0-5) /HPF Ur Squamous Epith Cells (0-2) /HPF Urine Bacteria (None Seen) Hyaline Casts (0-2) /LPF Influenza Type A (PCR) NEGATIVE (Negative) Influenza Type B (PCR) NEGATIVE (Negative) RSV RNA Qual (PCR) NEGATIVE (Negative) SARS-CoV-2 RNA (RT-PCR) NEGATIVE (Negative) 10/09/22 Range/Units 04:41 WBC (4.8-10.8) X10*3/uL RBC (4.60-5.80) X10*6/uL Hgb (14.0-18.0) g/dl Hct (42.0-52.0) % MCV (80.0-98.0) fL MCH (27.0-33.0) pg MCHC (31.0-36.0) g/dl RDW (11.0-16.0) % Plt Count (160-400) X10*3/uL MPV (9.4-12.4) fL Immature Gran % (Auto) (0.0-0.4) % Neut % (Auto) (45-73) % Lymph % (Auto) (20-40) % [place] % (Auto) (2-11) % Eos % (Auto) (0-4) % Baso % (Auto) (0-2) % Lymph # (Auto) (1.2-4.9) X10*3/uL [place] # (Auto) (0.1-1.2) X10*3/uL Eos # (Auto) (0.0-0.4) X10*3/uL Baso # (Auto) (0.0-0.2) X10*3/uL Abs Immat Gran (auto) (0.00-0.03) X10*3/uL Absolute Neuts (auto) (2.0-8.3) x10*3/uL Absolute Nucleated RBC (0.0-0.012) X10*3/uL Nucleated RBC % (auto) (0.0-0.2) /100WBC Sodium (135-145) mmol/L Potassium (3.3-5.1) mmol/L Chloride (96-108) mmol/L Carbon Dioxide (22-29) mmol/L Anion Gap (12-20) BUN (9-16) mg/dL Creatinine (0.5-1.4) mg/dL Estim Creat Clear Calc Estimated GFR POC Glucose (60-115) mg/dL Random Glucose (60-115) mg/dL Lactic Acid (0.5-2.0) mmol/L Calcium (8.4-10.2) mg/dL Total Bilirubin (0.0-1.0) mg/dL Direct Bilirubin (0.0-0.5) mg/dL AST (5-37) U/L ALT (0-40) U/L Alkaline Phosphatase (39-117) U/L Total Protein (6.5-8.0) g/dL Albumin (3.5-5.0) g/dL Triglycerides mg/dL Cholesterol mg/dL LDL Cholesterol, Calc HDL Cholesterol mg/dL Lipase (8-78) U/L Urine Color Yellow Urine Appearance Clear Urine pH 5.0 (5.0-9.0) Ur Specific [place] >= 1.030 H (1.005-1.025) Urine Protein Trace (Neg-Trace) mg/dL Urine Glucose (UA) >=1000 H (Negative) mg/dL Urine Ketones >=160 (Negative) mg/dL Urine Blood Negative (Negative) Urine Nitrite Negative (Negative) Ur Leukocyte Esterase Negative (Negative) Urine RBC 0-2 (0-2) /HPF Urine WBC 0-5 (0-5) /HPF Ur Squamous Epith Cells 0-2 (0-2) /HPF Urine Bacteria None Seen (None Seen) Hyaline Casts 3-5 (0-2) /LPF Influenza Type A (PCR) (Negative) Influenza Type B (PCR) (Negative) RSV RNA Qual (PCR) (Negative) SARS-CoV-2 RNA (RT-PCR) (Negative) Medications Administered Discontinued Medications Generic Name Dose Route Start Last Admin Trade Name Freq PRN Reason Stop Dose Admin Hydromorphone HCl 1 mg 10/09/22 03:22 10/09/22 03:38 Hydromorphone Hcl 1 Mg/Ml Syringe IVPUSH 10/09/22 03:23 1 mg ONCE ONE Administration Protocol Sodium Chloride 1,000 mls @ 999 mls/hr 10/09/22 02:12 10/09/22 02:28 Ns IV 10/09/22 03:12 999 mls/hr .Q1H1M ONE Administration Sodium Chloride 1,000 mls @ 999 mls/hr 10/09/22 03:55 10/09/22 04:02 Ns IV 10/09/22 04:55 999 mls/hr .Q1H1M ONE Administration Insulin Human Lispro 8 unit 10/09/22 02:17 10/09/22 02:28 Insulin Lispro 100 Unit/Ml 3 Ml Vial SUBCUT 10/09/22 02:18 8 unit ONCE ONE Administration Iohexol 100 ml 10/09/22 03:12 10/09/22 03:13 Iohexol 350 Mg/Ml 100 Ml Infus..Btl IV 10/09/22 03:13 100 ml ONCE ONE Administration Morphine Sulfate 4 mg 02/09/23 02:12 10/09/22 02:27 Morphine Sulfate 4 Mg/Ml Cartridge IVPUSH 10/09/22 02:13 4 mg ONCE ONE Administration Protocol Ondansetron HCl 4 mg 10/09/22 02:12 10/09/22 02:27 Ondansetron Hcl 4 Mg/2 Ml Vial IVPUSH 10/09/22 02:13 4 mg ONCE ONE Administration Critical Care Time Critical Care Time Critical Care Time: Yes Total Critical Care Time: 45 Attestation: The patient was critically ill with a high probability of imminent or life threatening deterioration. I spent greater than 50 minutes of discontinuous time evaluating the patient,delivering critical care at the bedside, discussing and evaluating pertinent data with consultants. Critical care time does not include time spent performing separately billable procedures or teaching. Total time spent performing critical care was 45 minutes. Discharge Plan Discharge Clinical Impression: Pancreatitis, Essential hypertriglyceridemia Patient Disposition: Still a Patient
[2022-10-09 02:09] LABS: Glucose, Whole Blood 327 mg/dL (60-115)
[2022-10-09 02:14] LABS: MANUAL DIFF FLAG NO
[2022-10-09 02:15] LABS: Basophils Absolute Auto 0.1 X10*3/uL (0.0-0.2); Basophils Percent Auto 0.4 % (0-2); Eosinophils Absolute Auto 0.1 X10*3/uL (0.0-0.4); Eosinophils Percent Auto 0.5 % (0-4); Hematocrit 39.3 % (42.0-52.0); Hemoglobin 14.1 g/dl (14.0-18.0); Imm Gran Abs Auto 0.05 X10*3/uL (0.00-0.03); Imm Gran Pct Auto 0.4 % (0.0-0.4); Lymphocytes Absolute Auto 1.5 X10*3/uL (1.2-4.9); Lymphocytes Percent Auto 11.6 % (20-40); Mean Corpuscular HGB Conc 35.9 g/dl (31.0-36.0); Mean Corpuscular Hemoglobin 29.3 pg (27.0-33.0); Mean Corpuscular Volume 81.5 fL (80.0-98.0); Mean Platelet Volume 10.9 fL (9.4-12.4); Monocytes Percent Auto 8.2 % (2-11); Neutrophils Absolute Auto 10.1 x10*3/uL (2.0-8.3); Neutrophils Percent Auto 78.9 % (45-73); Platelet Count 260 X10*3/uL (160-400); Red Blood Count 4.82 X10*6/uL (4.60-5.80); Red Cell Distribution Width 14.1 % (11.0-16.0); White Blood Count 12.7 X10*3/uL (4.8-10.8)
[2022-10-09] MEDS: ondansetron HCL 4 MG/2 ML VIAL IVPUSH (02:27)
[2022-10-09] MEDS: Morphine Sulfate 4 MG/ML CARTRIDGE IVPUSH ×2 (02:27→05:37)
[2022-10-09] MEDS: Insulin Lispro 100 UNIT/ML 3 ML VIAL 8 UNIT SUBCUT (02:28)
[2022-10-09] MEDS: 0.9 % Sodium Chloride 1,000 ML 999 ML IV ×2 (02:28→04:02)
--- NOTE | 2022-10-09 02:32 | PC.NURSE ---
Patient alert and oriented x 3, tearful. Patient c/o left lower quadrant pain 9/10 medicated with morphine awaiting to see if he gets pain relief. Patients blood sugar is 327 treated with 8units of lispro will assess effectiveness in an hour. Patient scheduled for ct abd/pelvis IV 20g in left AC. Awaiting results of labs.
[2022-10-09 02:40] LABS: Alanine Aminotransferase 32 U/L (0-40); Albumin Level 4.1 g/dL (3.5-5.0); Alkaline Phosphatase 168 U/L (39-117); Anion Gap 22 (12-20); Aspartate Amino Transferase 18 U/L (5-37); Bilirubin Direct < 0.2 mg/dL (0.0-0.5); Blood Urea Nitrogen 10 mg/dL (9-16); Calcium 9.6 mg/dL (8.4-10.2); Carbon Dioxide 17 mmol/L (22-29); Chloride 97 mmol/L (96-108); Creatinine Clr Calc Pharmacy 127.9; Estimated Glomerular Filt Rate > 60; Glucose Random 336 mg/dL (60-115); Lipase 126 U/L (8-78); Potassium 4.2 mmol/L (3.3-5.1); Sodium 132 mmol/L (135-145); Total Protein 7.5 g/dL (6.5-8.0)
[2022-10-09 02:42] LABS: Lactic Acid 1.3 mmol/L (0.5-2.0)
[2022-10-09 03:04] LABS: Influenza A PCR NEGATIVE (Negative); Influenza B PCR NEGATIVE (Negative); Resp Syncy Virus RNA Qual PCR NEGATIVE (Negative); SARS COV2 PCR INHOUSE NEGATIVE (Negative)
[2022-10-09] MEDS: iohexoL 350 MG/ML 100 ML INFUS..BTL IV (03:13)
[2022-10-09] MEDS: HYDROmorphone HCl 1 MG/ML SYRINGE IVPUSH (03:38)
[2022-10-09 03:56] LABS: Glucose, Whole Blood 293 mg/dL (60-115)
--- NOTE | 2022-10-09 04:03 | PC.NURSE ---
Medicated per oct, Chest xray ordered.
[2022-10-09 04:21] LABS: Cholesterol 249 mg/dL; HDL Cholesterol 24 mg/dL; Triglycerides 1348 mg/dL
[2022-10-09 04:50] LABS: Appearance Urine Clear; Color Urine Yellow; Glucose Urine UA >=1000 mg/dL (Negative); Leukocyte Esterase Urine Negative (Negative); Nitrite Urine Negative (Negative); Specific Gravity - Urine >= 1.030 (1.005-1.025); UMIC TRIGGER UACC YES; Urine Blood Negative (Negative); Urine Ketones >=160 mg/dL (Negative); Urine Protein Trace mg/dL (Neg-Trace)
[2022-10-09 04:55] LABS: Bacteria Urine None Seen (None Seen); RBC Urine 0-2 /HPF (0-2); Squamous Epithelial Cell Urine 0-2 /HPF (0-2); WBC Urine 0-5 /HPF (0-5)
--- NOTE | 2022-10-09 05:21 | P.HPCC_ITS ---
History of Present Illness Date of Service: 10/09/22 Attending physician on admission: Vincent Li Chief Complaint: ACUTE PANCREATITIS/ HYPERTRIGLICEREMIA HPI: ?32-year-old patient with history of morbid obesity and BMI of 48.7, anxiety, history of diabetes with hemoglobin A1c above 11, hypertension, hypertriglyceridemia. ?Patient presented to the emergency room with complaints of acute onset abdominal pain since yesterday, in the epigastric area, radiating towards the back, 8/10 up to 10/10 in intermittent manner, associated with nausea but no vomiting.? He did notice to have a temperature of a 100.9 degrees earlier on with some body aches but otherwise no other symptoms.? Patient reports that he had similar symptoms about 3 weeks ago but they went away and he did not seek any medical attention.? He has not had a history of pancreatitis and does not consume alcohol. In the emergency room his initial workup revealed no fever, some tachycardia with max heart rate of 116 but otherwise normal blood pressure.? White count 12.7, H&H of 14.1 and 39.3 respectively, platelets 260.? Sodium 132, potassium 4.2, chloride 97, carbon dioxide 17, anion gap 22, BUN 10, creatinine 1.14.? Blood glucose 293.? Lactic acid 1.3.? Triglycerides 1348, lipase 126.? Urinalysis significant for glucosuria.? Otherwise respiratory panel including COVID is negative.? Chest x-ray no acute disease. ?CT abdomen and pelvis with IV contrast reveals mild hazy increased attenuation of the peripancreatic fat about the peripancreatic head without necrotic or peripancreatic fluid collection.? Findings consistent with acute pancreatitis involving the peripancreatic head. ? Patient was given IV fluids, started on insulin drip, antiemetics, his pain is slightly better, no longer nauseous. ? Review of systems: As above, otherwise the patient denies any prior history of strokes, cold intolerance, migraine headaches, head trauma, no eyes, ears or nose problems, no problems swallowing or with phonation, no thyroid disease, no palpitations, coronary disease, cough, sputum production, pneumonia, bronchitis, COPD or emphysema, diarrhea, abdominal surgeries, melena, hematochezia, hematemesis, hematuria, kidney stones, liver problems, immunocompromise state of any kind, no history of DVT or PE, leg edema, fractures or extremity surgeries all other review of systems were reviewed and they were all negative. ? Past Medical History:? As above ? Past Surgical History: Herniorrhaphy Cardiac catheterization with negative result Lymph node removal from the neck negative for cancer ? Family history:? Noncontributory ? Social History:? Lives at home, denies smoking, drinks alcohol socially and very little amounts.? Denies any drugs. ? CODE STATUS: FULL CODE ? Allergies: NKDA ? Home Medications: See Med Rec ? PHYSICAL EXAM: VS: ?123/56, 110, 15, 99.2 F, 94% on room air. General:? Alert oriented x3 no acute distress.? Speaking full sentences.? Speech is well articulated, thought process is coherent.? Following all commands. Skin:? Intact, no lesions, edema, erythema, clubbing or cyanosis.? No ulcers. HEENT:? Head is normocephalic, atraumatic, pupils equal round reactive to light accommodation bilaterally.? Extraocular movements appear intact.? Buccal mucosa is very dry.? Neck is supple without lymphadenopathy. Cardiac:? Clear S1-S2, no murmurs rubs or gallops. Pulmonary:? Clear to auscultation, no wheezes, rales or rhonchi. Abdomen:? Protuberant, positive bowel sounds in all 4 quadrants.? Soft, tender to percussion over the epigastric area radiating towards the back with involuntary guarding, tender to light touch.? I did not pursue deep palpation.? No rebound noted. Musculoskeletal:? Moving all 4 extremities upon request a major joints, there is no crepitus or tenderness.? The strength is 5/5 bilaterally and throughout all 4 extremities.? There is no leg edema , no calf tenderness , no leg asymmetry.? Gait not assessed at this point. Neurologic:? As above, cranial nerves 2-12 are grossly intact.? No focal deficits noted. Motor strength as above.? Vascular:? 2+ pulses upper and lower extremities distally. ? SIGNIFICANT LABORATORY DATA:? As above ? REVIEW OF IMAGES: ?As above ? EKG REVIEW: ?Sinus rhythm 95 beats per minute.? There is no ST elevations, no ST depressions.? QTC 368.? No comparison available. ? ? ASSESSMENT : 1. Acute pancreatitis due to high triglyceride levels 2. Reactive tachycardia 3. Hypertriglyceridemia 4. Uncontrolled diabetes mellitus type 2 r/o DKA although unlikely. 5. Reactive leukocytosis without evidence of infection 6. Chronic morbid obesity 7. Stable essential hypertension ? PLAN OF CARE: Admit to ICU, monitor I and O's, vital signs, IV fluids, continue with insulin drip, check blood sugars every 1 hour, electrolytes every 4 hours, resume Lo pressor, continue with antiemetics as needed, morphine as needed for pain.? Recheck laboratories in the morning including triglycerides and lipase.? Will add serum acetone given mild acidosis and to rule out superimposed DKA. Patient will need a diabetic consult, likely he will need a combination of metformin with glipizide or glyburide to achieve better glycemic control, he will also benefit from an LEIF-inhibitor to protect him from diabetic nephropathy. ? GI PROPHYLAXIS:? IV ppi while NPO DVT PROPHYLAXIS:? SubQ Lovenox ? Critical care time used for critical evaluation of this patient, diagnosis, treatment and coordination of care, review her records and documentation TOTAL CRITICAL CARE TIME?90?? MIN . discussion and coordination with consultants, completely separate from any procedures performed. Patient's care was discussed in detail with Dr. Li.? He is aware of all the above as well as the plan of care for this patient. [facility] Past Medical History Medical History Anxiety Diabetes HTN (hypertension) Social History Social History Household Members: Friend(s) Housing: Apartment Patient Tobacco Use Status: Never used Tobacco Smoked in Last 30 Days: No e-Cigarette/Vaping Use: Former Use Use of substances other than those prescribed or required for medical reasons: No Currently Displaying Signs/Symptoms of Drug Intoxication Withdrawal: No Have you been hit, kicked, punched, or otherwise hurt by someone within the past year? If so, by whom?: No Do you feel safe in your current relationship?: No Current Relationship Is there a partner from a previous relationship who is making you feel unsafe now?: No Are you made to feel afraid or neglected: No Advance Directives: No Do you have thoughts of harming others: None Do you have a plan to hurt others: No Plan Recently lost weight without trying: No Nutrition Risks: No Nutritional Risk Meds Allergies Allergy/AdvReac Type Severity Reaction Status Date / Time tomato [TOMATO] Allergy Severe HIVES, Verified 10/09/22 01:47 DIFFICULTY BREATHING, THROAT SWELLING Active Medications: Current Medications Enoxaparin Sodium (Enoxaparin Sodium 40 Mg/0.4 Ml Syringe) 40 mg SUBCUT Q24H LAURA Insulin Human Regular (Myxredlin) 100 unit in 100 mls @ 0 mls/hr IVCONT .Q0M LAURA; Protocol Dextrose/Sodium Chloride (D51/2ns) 1,000 mls @ 100 mls/hr IVCONT .Q10H LAURA Lactated Ringer's (Lr) 1,000 mls @ 100 mls/hr IVCONT .Q10H LAURA Pantoprazole Sodium 40 mg/ (Sodium Chloride) 110 mls @ 400 mls/hr IV DAILY@0630 LAURA Metoprolol Succinate (Metoprolol Succinate Er 25 Mg Tab.Er.24h) 75 mg PO DAILY LAURA; Protocol Morphine Sulfate (Morphine Sulfate 4 Mg/Ml Cartridge) 2 mg IVPUSH Q2H PRN; Protocol PRN Reason: Pain, Moderate (Pain Scale 4-6 Home Medications Medication Instructions Recorded Confirmed Last Taken Type doxepin 25 mg capsule 1 cap PO BEDTIME 10/09/22 10/09/22 10/09/22 03:55 History metformin 500 mg tablet 1 tab PO BID 10/09/22 10/09/22 10/09/22 03:54 History metoprolol succinate 50 mg 1.5 tab PO DAILY 10/09/22 10/09/22 10/08/22 History tablet,extended release 24 hr Physical Exam Vital Signs: Vital Signs: Last Vital Signs Temp 99.2 F 10/09/22 03:44 Pulse 110 H 10/09/22 03:44 Resp 15 10/09/22 03:44 BP 123/56 L 10/09/22 03:44 Pulse Ox 94 10/09/22 03:44 O2 Del Method 10/09/22 03:44 BMI result Body Mass Index 48.6 Results Labs 10/09/22 02:08 10/09/22 02:08 Labs: Laboratory Results - last 24 hr 10/09/22 10/09/22 10/09/22 02:03 02:08 02:08 MCV 81.5 MCH 29.3 MCHC 35.9 RDW 14.1 Plt Count 260 MPV 10.9 Immature Gran % (Auto) 0.4 Neut % (Auto) 78.9 H Lymph % (Auto) 11.6 L [place] % (Auto) 8.2 Eos % (Auto) 0.5 Baso % (Auto) 0.4 Lymph # (Auto) 1.5 [place] # (Auto) 1.0 Eos # (Auto) 0.1 Baso # (Auto) 0.1 Abs Immat Gran (auto) 0.05 H Absolute Neuts (auto) 10.1 H Absolute Nucleated RBC 0.000 Nucleated RBC % (auto) 0.0 Anion Gap 22 H Estim Creat Clear Calc 127.9 Estimated GFR > 60 POC Glucose 327 H Random Glucose 336 H Lactic Acid Calcium 9.6 Total Bilirubin 1.0 Direct Bilirubin < 0.2 AST 18 ALT 32 Alkaline Phosphatase 168 H Total Protein 7.5 Albumin 4.1 Triglycerides 1348 Cholesterol 249 LDL Cholesterol, Calc TNP HDL Cholesterol 24 Lipase 126 H Urine Color Urine Appearance Urine pH Ur Specific [place] Urine Protein Urine Glucose (UA) Urine Ketones Urine Blood Urine Nitrite Ur Leukocyte Esterase Urine RBC Urine WBC Ur Squamous Epith Cells Urine Bacteria Hyaline Casts Influenza Type A (PCR) Influenza Type B (PCR) RSV RNA Qual (PCR) SARS-CoV-2 RNA (RT-PCR) 10/09/22 10/09/22 10/09/22 02:16 02:16 03:51 MCV MCH MCHC RDW Plt Count MPV Immature Gran % (Auto) Neut % (Auto) Lymph % (Auto) [place] % (Auto) Eos % (Auto) Baso % (Auto) Lymph # (Auto) [place] # (Auto) Eos # (Auto) Baso # (Auto) Abs Immat Gran (auto) Absolute Neuts (auto) Absolute Nucleated RBC Nucleated RBC % (auto) Anion Gap Estim Creat Clear Calc Estimated GFR POC Glucose 293 H Random Glucose Lactic Acid 1.3 Calcium Total Bilirubin Direct Bilirubin AST ALT Alkaline Phosphatase Total Protein Albumin Triglycerides Cholesterol LDL Cholesterol, Calc HDL Cholesterol Lipase Urine Color Urine Appearance Urine pH Ur Specific [place] Urine Protein Urine Glucose (UA) Urine Ketones Urine Blood Urine Nitrite Ur Leukocyte Esterase Urine RBC Urine WBC Ur Squamous Epith Cells Urine Bacteria Hyaline Casts Influenza Type A (PCR) NEGATIVE Influenza Type B (PCR) NEGATIVE RSV RNA Qual (PCR) NEGATIVE SARS-CoV-2 RNA (RT-PCR) NEGATIVE 10/09/22 04:41 MCV MCH MCHC RDW Plt Count MPV Immature Gran % (Auto) Neut % (Auto) Lymph % (Auto) [place] % (Auto) Eos % (Auto) Baso % (Auto) Lymph # (Auto) [place] # (Auto) Eos # (Auto) Baso # (Auto) Abs Immat Gran (auto) Absolute Neuts (auto) Absolute Nucleated RBC Nucleated RBC % (auto) Anion Gap Estim Creat Clear Calc Estimated GFR POC Glucose Random Glucose Lactic Acid Calcium Total Bilirubin Direct Bilirubin AST ALT Alkaline Phosphatase Total Protein Albumin Triglycerides Cholesterol LDL Cholesterol, Calc HDL Cholesterol Lipase Urine Color Yellow Urine Appearance Clear Urine pH 5.0 Ur Specific [place] >= 1.030 H Urine Protein Trace Urine Glucose (UA) >=1000 H Urine Ketones >=160 Urine Blood Negative Urine Nitrite Negative Ur Leukocyte Esterase Negative Urine RBC 0-2 Urine WBC 0-5 Ur Squamous Epith Cells 0-2 Urine Bacteria None Seen Hyaline Casts 3-5 Influenza Type A (PCR) Influenza Type B (PCR) RSV RNA Qual (PCR) SARS-CoV-2 RNA (RT-PCR) Imaging Radiologist's Impressions: Impressions Abdomen/Pelvis CT 10/09/22 03:05 IMPRESSION: Acute interstitial demonstrate pancreatitis predominantly involving the pancreatic head. Fleischner guidelines were followed. Chest X-Ray 10/09/22 04:05 IMPRESSION: Unremarkable examination. Assessment and Plan Time Spent With Patient Time: Total time managing care of this patient today ____ minutes.
[2022-10-09] MEDS: Insulin Regular/NS 100 UNIT/100 ML PLAST..BAG IVCONT ×2 (05:34→21:35)
[2022-10-09] MEDS: gemfibroziL 600 MG TABLET PO ×2 (05:36→16:21)
[2022-10-09] MEDS: LORazepam 2 MG/ML VIAL 1 MG IVPUSH (05:37)
[2022-10-09] MEDS: Enoxaparin Sodium 40 MG/0.4 ML SYRINGE SUBCUT (05:37)
[2022-10-09] MEDS: Pantoprazole Sodium 40 MG in 0.9 % Sodium Chloride 100 ML 400 MG IV (05:38)
--- NOTE | 2022-10-09 06:02 | PC.NURSE ---
verbal order received by two rn's via dr duran, this rn Jalyn Hooker and Jossie Mattson for insulin drip to run at 5 units hour. drip started with two rn's at bedside.
--- NOTE | 2022-10-09 06:07 | PC.NURSE ---
Per Dr. Shah pt is to start insulin drip at 5units per hour. HOWIE Gunderson witness order. pt medicated per Oct. Will continue to monitor.
[2022-10-09] MEDS: Dextrose 5 % and 0.45 % NaCl 1,000 ML 100 ML IVCONT (06:12)
--- NOTE | 2022-10-09 06:13 | MHC.EDTECH ---
pt sleeping quietly repeat blood sugar taken.vss
[2022-10-09 06:14] LABS: Glucose, Whole Blood 266 mg/dL (60-115)
[2022-10-09 06:16] LABS: Acetone, serum QL Small (Negative)
[2022-10-09 06:17] LABS: Anion Gap 18 (12-20); Blood Urea Nitrogen 7 mg/dL (9-16); Carbon Dioxide 16 mmol/L (22-29); Chloride 103 mmol/L (96-108); Creatinine Clr Calc Pharmacy 177.9; Estimated Glomerular Filt Rate > 60; Glucose Random 267 mg/dL (60-115); Sodium 133 mmol/L (135-145)
--- NOTE | 2022-10-09 06:47 | PC.NURSE ---
pt reports pain management has improved after being medicated.
[2022-10-09 06:54] LABS: Glucose, Whole Blood 263 mg/dL (60-115)
--- NOTE | 2022-10-09 07:05 | PC.NURSE ---
Report by Rosetta DENISE. POC at this time 263, previous was 293 demonstrating a drop of 30. Per protocol there is NO CHANGE in insulin drip. Will recheck in 1 hour.
[2022-10-09] MEDS: Lactated Ringers 1,000 ML 100 ML IVCONT ×2 (07:19→16:22)
[2022-10-09] MEDS: Morphine Sulfate 4 MG/ML CARTRIDGE 2 MG IVPUSH (07:53)
[2022-10-09 08:21] LABS: Glucose, Whole Blood 220 mg/dL (60-115)
--- NOTE | 2022-10-09 08:26 | PHA.MEDREC ---
Pharmacy Consult ? Medication Reconciliation Pharmacy has reviewed the medication reconciliation completed by Lawanda. Patient fills metformin 500 mg BID instead of 1000 mg BID. Erica Bryson, PharmD
[2022-10-09 09:21] LABS: Glucose, Whole Blood 230 mg/dL (60-115)
[2022-10-09] MEDS: fentaNYL citrate/PF 100 MCG/2 ML VIAL 50 MCG IVPUSH ×8 (09:54→21:53)
[2022-10-09 10:25] LABS: Glucose, Whole Blood 211 mg/dL (60-115)
[2022-10-09] MEDS: Metoprolol Succinate ER 25 MG TAB.ER.24H 75 MG PO (10:27)
[2022-10-09 11:35] LABS: Glucose, Whole Blood 172 mg/dL (60-115)
[2022-10-09 12:25] LABS: Glucose, Whole Blood 153 mg/dL (60-115)
[2022-10-09 12:53] LABS: Blood Urea Nitrogen 6 mg/dL (9-16); Calcium 8.7 mg/dL (8.4-10.2); Creatinine Clr Calc Pharmacy 197.1; Estimated Glomerular Filt Rate > 60; Glucose Random 151 mg/dL (60-115); Triglycerides 843 mg/dL
[2022-10-09 13:25] LABS: Glucose, Whole Blood 150 mg/dL (60-115)
[2022-10-09 13:47] LABS: Anion Gap 13 (12-20); Carbon Dioxide 20 mmol/L (22-29); Chloride 105 mmol/L (96-108); Potassium 3.4 mmol/L (3.3-5.1); Sodium 135 mmol/L (135-145)
[2022-10-09 14:04] LABS: Glucose, Whole Blood 147 mg/dL (60-115)
[2022-10-09 16:15] LABS: Glucose, Whole Blood 152 mg/dL (60-115)
[2022-10-09 18:19] LABS: Glucose, Whole Blood 137 mg/dL (60-115)
[2022-10-09 20:16] LABS: Glucose, Whole Blood 110 mg/dL (60-115)
[2022-10-09 20:47] LABS: Anion Gap 17 (12-20); Blood Urea Nitrogen 6 mg/dL (9-16); Calcium 8.8 mg/dL (8.4-10.2); Carbon Dioxide 21 mmol/L (22-29); Chloride 105 mmol/L (96-108); Estimated Glomerular Filt Rate > 60; Glucose Random 100 mg/dL (60-115); Potassium 3.7 mmol/L (3.3-5.1); Sodium 139 mmol/L (135-145); Triglycerides 650 mg/dL
[2022-10-09 22:22] LABS: Glucose, Whole Blood 142 mg/dL (60-115)
[2022-10-10] VITALS (15 sets, daily range): BP systolic 108–145; BP diastolic 65–85; PULSE 90–104; RESP 12–26; TEMP 37.1–37.6; O2SAT 95–100
[2022-10-10 00:30] LABS: Glucose, Whole Blood 178 mg/dL (60-115)
[2022-10-10 02:24] LABS: Glucose, Whole Blood 143 mg/dL (60-115)
[2022-10-10] MEDS: fentaNYL citrate/PF 100 MCG/2 ML VIAL 50 MCG IVPUSH ×3 (02:28→10:26)
[2022-10-10] MEDS: Lactated Ringers 1,000 ML 100 ML IVCONT (02:29)
[2022-10-10 04:27] LABS: Glucose, Whole Blood 134 mg/dL (60-115)
[2022-10-10 05:28] LABS: MANUAL DIFF FLAG NO
[2022-10-10 05:28] LABS: VBG Base Excess -2.5 mmol/L; VBG HCO3 20 mmol/L (22-26); VBG pCO2 29 mmHg; VBG pH 7.44 (7.32-7.43); VBG pO2 62 mmHg
[2022-10-10 05:32] LABS: Basophils Percent Auto 0.3 % (0-2); Eosinophils Absolute Auto 0.1 X10*3/uL (0.0-0.4); Eosinophils Percent Auto 1.3 % (0-4); Hematocrit 37.8 % (42.0-52.0); Hemoglobin 12.6 g/dl (14.0-18.0); Imm Gran Abs Auto 0.04 X10*3/uL (0.00-0.03); Imm Gran Pct Auto 0.4 % (0.0-0.4); Lymphocytes Absolute Auto 1.8 X10*3/uL (1.2-4.9); Lymphocytes Percent Auto 16.6 % (20-40); Mean Corpuscular HGB Conc 33.3 g/dl (31.0-36.0); Mean Corpuscular Hemoglobin 27.7 pg (27.0-33.0); Mean Corpuscular Volume 83.1 fL (80.0-98.0); Mean Platelet Volume 11.2 fL (9.4-12.4); Monocytes Absolute Auto 0.8 X10*3/uL (0.1-1.2); Monocytes Percent Auto 7.4 % (2-11); Platelet Count 234 X10*3/uL (160-400); Red Blood Count 4.55 X10*6/uL (4.60-5.80); Red Cell Distribution Width 14.6 % (11.0-16.0); White Blood Count 10.8 X10*3/uL (4.8-10.8)
[2022-10-10] MEDS: Pantoprazole Sodium 40 MG in 0.9 % Sodium Chloride 100 ML 400 MG IV (05:32)
[2022-10-10 05:52] LABS: Alanine Aminotransferase 28 U/L (0-40); Albumin Level 3.5 g/dL (3.5-5.0); Alkaline Phosphatase 128 U/L (39-117); Anion Gap 18 (12-20); Aspartate Amino Transferase 23 U/L (5-37); Bilirubin Total 0.9 mg/dL (0.0-1.0); Blood Urea Nitrogen 5 mg/dL (9-16); Calcium 8.6 mg/dL (8.4-10.2); Carbon Dioxide 18 mmol/L (22-29); Chloride 106 mmol/L (96-108); Creatinine Clr Calc Pharmacy 191.9; Estimated Glomerular Filt Rate > 60; Glucose Random 140 mg/dL (60-115); Lipase 68 U/L (8-78); Magnesium 1.6 mg/dL (1.6-2.6); Phosphorus 2.9 mg/dL (2.7-4.5); Potassium 3.4 mmol/L (3.3-5.1); Sodium 139 mmol/L (135-145); Total Protein 6.1 g/dL (6.5-8.0); Triglycerides 404 mg/dL
[2022-10-10 06:24] LABS: Glucose, Whole Blood 148 mg/dL (60-115)
[2022-10-10 07:05] LABS: Venous Blood Gas Refer to POC result
[2022-10-10] MEDS: Metoprolol Succinate ER 25 MG TAB.ER.24H 75 MG PO (07:41)
[2022-10-10] MEDS: gemfibroziL 600 MG TABLET PO ×2 (07:41→15:48)
[2022-10-10 08:19] LABS: Glucose, Whole Blood 122 mg/dL (60-115)
--- NOTE | 2022-10-10 09:57 | MHC.CM.PN ---
Pt preparing to transfer out of ICU: lives independently: no services or DME: works, drives, has cell and will call for own transportation to home.
[2022-10-10 10:16] LABS: Glucose, Whole Blood 157 mg/dL (60-115)
--- NOTE | 2022-10-10 10:36 | P.PNCC_ITS ---
Subjective Subjective Date of Service: 10/10/22 Interval History: 32-year-old gentleman with underlying obesity, diabetes mellitus, hypertension, hypertriglyceridemia admitted on 10/09/2022 with abdominal pain secondary to pancreatitis with hypertriglyceridemia above 1000. CT scan with no evidence of pancreatic necrosis assessed. Patient was started on IV fluids, pain control, and insulin drip and admitted to intensive care unit. His triglycerides improved to below 500. He was started on gemfibrozil and clear liquid diet. No events overnight. Critical Care Time (minutes): 0 Physical Exam Vital Signs: Vital Signs: Last Vital Signs Temp 98.7 F 10/10/22 07:47 Pulse 91 10/10/22 10:00 Resp 16 10/10/22 10:26 BP 108/65 10/10/22 09:00 Pulse Ox 98 10/10/22 10:00 O2 Del Method 10/10/22 10:00 BMI result Body Mass Index 48.6 Const: General: no acute distress, alert and awake Nutritional Appearance: obese Eyes: Sclerae: sclerae normal EOM: EOMs intact bilaterally Neck: Neck: Yes no lymphadenopathy, Yes trachea midline and Yes supple Resp: Effort & Inspection: normal respiratory effort and no respiratory distress Auscultation: clear to auscultation bilaterally Cardio: Rate: regular rate Rhythm: regular rhythm Heart sounds: no gallops, no murmurs and no rubs GI: Palpation (GI): Soft to palpation and Other GI palpation findings present ( Nontender) Auscultation: normal bowel sounds Extrem: General: Yes no pedal edema, No clubbing and No cyanosis Objective Data Labs 10/10/22 05:14 10/10/22 05:14 Labs: Laboratory Results - last 24 hr 10/09/22 10/09/22 10/09/22 11:26 12:21 12:22 WBC RBC Hgb Hct MCV MCH MCHC RDW Plt Count MPV Immature Gran % (Auto) Neut % (Auto) Lymph % (Auto) [place] % (Auto) Eos % (Auto) Baso % (Auto) Lymph # (Auto) [place] # (Auto) Eos # (Auto) Baso # (Auto) Abs Immat Gran (auto) Absolute Neuts (auto) Absolute Nucleated RBC Nucleated RBC % (auto) VBG pH VBG pCO2 VBG pO2 VBG HCO3 VBG O2 Saturation VBG Base Excess Sodium 135 Potassium 3.4 Chloride 105 Carbon Dioxide 20 L Anion Gap 13 BUN 6 L Creatinine 0.74 Estim Creat Clear Calc 197.1 Estimated GFR > 60 POC Glucose 172 H 153 H Random Glucose 151 H Calcium 8.7 Phosphorus Magnesium Total Bilirubin AST ALT Alkaline Phosphatase Total Protein Albumin Triglycerides 843 Lipase 10/09/22 10/09/22 10/09/22 13:21 14:01 16:11 WBC RBC Hgb Hct MCV MCH MCHC RDW Plt Count MPV Immature Gran % (Auto) Neut % (Auto) Lymph % (Auto) [place] % (Auto) Eos % (Auto) Baso % (Auto) Lymph # (Auto) [place] # (Auto) Eos # (Auto) Baso # (Auto) Abs Immat Gran (auto) Absolute Neuts (auto) Absolute Nucleated RBC Nucleated RBC % (auto) VBG pH VBG pCO2 VBG pO2 VBG HCO3 VBG O2 Saturation VBG Base Excess Sodium Potassium Chloride Carbon Dioxide Anion Gap BUN Creatinine Estim Creat Clear Calc Estimated GFR POC Glucose 150 H 147 H 152 H Random Glucose Calcium Phosphorus Magnesium Total Bilirubin AST ALT Alkaline Phosphatase Total Protein Albumin Triglycerides Lipase 10/09/22 10/09/22 10/09/22 18:15 19:58 20:12 WBC RBC Hgb Hct MCV MCH MCHC RDW Plt Count MPV Immature Gran % (Auto) Neut % (Auto) Lymph % (Auto) [place] % (Auto) Eos % (Auto) Baso % (Auto) Lymph # (Auto) [place] # (Auto) Eos # (Auto) Baso # (Auto) Abs Immat Gran (auto) Absolute Neuts (auto) Absolute Nucleated RBC Nucleated RBC % (auto) VBG pH VBG pCO2 VBG pO2 VBG HCO3 VBG O2 Saturation VBG Base Excess Sodium 139 Potassium 3.7 Chloride 105 Carbon Dioxide 21 L Anion Gap 17 BUN 6 L Creatinine 0.78 Estim Creat Clear Calc 187.0 Estimated GFR > 60 POC Glucose 137 H 110 Random Glucose 100 Calcium 8.8 Phosphorus Magnesium Total Bilirubin AST ALT Alkaline Phosphatase Total Protein Albumin Triglycerides 650 Lipase 10/09/22 10/10/22 10/10/22 22:18 00:26 02:20 WBC RBC Hgb Hct MCV MCH MCHC RDW Plt Count MPV Immature Gran % (Auto) Neut % (Auto) Lymph % (Auto) [place] % (Auto) Eos % (Auto) Baso % (Auto) Lymph # (Auto) [place] # (Auto) Eos # (Auto) Baso # (Auto) Abs Immat Gran (auto) Absolute Neuts (auto) Absolute Nucleated RBC Nucleated RBC % (auto) VBG pH VBG pCO2 VBG pO2 VBG HCO3 VBG O2 Saturation VBG Base Excess Sodium Potassium Chloride Carbon Dioxide Anion Gap BUN Creatinine Estim Creat Clear Calc Estimated GFR POC Glucose 142 H 178 H 143 H Random Glucose Calcium Phosphorus Magnesium Total Bilirubin AST ALT Alkaline Phosphatase Total Protein Albumin Triglycerides Lipase 10/10/22 10/10/22 10/10/22 04:23 05:14 05:14 WBC 10.8 RBC 4.55 L Hgb 12.6 L Hct 37.8 L MCV 83.1 MCH 27.7 MCHC 33.3 RDW 14.6 Plt Count 234 MPV 11.2 Immature Gran % (Auto) 0.4 Neut % (Auto) 74.0 H Lymph % (Auto) 16.6 L [place] % (Auto) 7.4 Eos % (Auto) 1.3 Baso % (Auto) 0.3 Lymph # (Auto) 1.8 [place] # (Auto) 0.8 Eos # (Auto) 0.1 Baso # (Auto) 0.0 Abs Immat Gran (auto) 0.04 H Absolute Neuts (auto) 8.0 Absolute Nucleated RBC 0.000 Nucleated RBC % (auto) 0.0 VBG pH VBG pCO2 VBG pO2 VBG HCO3 VBG O2 Saturation VBG Base Excess Sodium 139 Potassium 3.4 Chloride 106 Carbon Dioxide 18 L Anion Gap 18 BUN 5 L Creatinine 0.76 Estim Creat Clear Calc 191.9 Estimated GFR > 60 POC Glucose 134 H Random Glucose 140 H Calcium 8.6 Phosphorus 2.9 Magnesium 1.6 Total Bilirubin 0.9 AST 23 ALT 28 Alkaline Phosphatase 128 H Total Protein 6.1 L Albumin 3.5 Triglycerides 404 Lipase 68 10/10/22 10/10/22 10/10/22 05:21 06:20 08:12 WBC RBC Hgb Hct MCV MCH MCHC RDW Plt Count MPV Immature Gran % (Auto) Neut % (Auto) Lymph % (Auto) [place] % (Auto) Eos % (Auto) Baso % (Auto) Lymph # (Auto) [place] # (Auto) Eos # (Auto) Baso # (Auto) Abs Immat Gran (auto) Absolute Neuts (auto) Absolute Nucleated RBC Nucleated RBC % (auto) VBG pH 7.44 H VBG pCO2 29 VBG pO2 62 VBG HCO3 20 L VBG O2 Saturation 91.0 VBG Base Excess -2.5 Sodium Potassium Chloride Carbon Dioxide Anion Gap BUN Creatinine Estim Creat Clear Calc Estimated GFR POC Glucose 148 H 122 H Random Glucose Calcium Phosphorus Magnesium Total Bilirubin AST ALT Alkaline Phosphatase Total Protein Albumin Triglycerides Lipase 10/10/22 10:13 WBC RBC Hgb Hct MCV MCH MCHC RDW Plt Count MPV Immature Gran % (Auto) Neut % (Auto) Lymph % (Auto) [place] % (Auto) Eos % (Auto) Baso % (Auto) Lymph # (Auto) [place] # (Auto) Eos # (Auto) Baso # (Auto) Abs Immat Gran (auto) Absolute Neuts (auto) Absolute Nucleated RBC Nucleated RBC % (auto) VBG pH VBG pCO2 VBG pO2 VBG HCO3 VBG O2 Saturation VBG Base Excess Sodium Potassium Chloride Carbon Dioxide Anion Gap BUN Creatinine Estim Creat Clear Calc Estimated GFR POC Glucose 157 H Random Glucose Calcium Phosphorus Magnesium Total Bilirubin AST ALT Alkaline Phosphatase Total Protein Albumin Triglycerides Lipase Microbiology Microbiology Results: Microbiology 10/09/22 02:20 Blood - Venous Blood Culture - Preliminary No growth after 24 hours. 10/09/22 02:16 Blood - Venous Blood Culture - Preliminary No growth after 24 hours. Progress Note: A&P Assessment and plan (1) Pancreatitis: Status: Acute (2) Essential hypertriglyceridemia: Status: Acute (3) Diabetes: Status: Acute (4) HTN (hypertension): Status: Acute Plan Assessment: 32-year-old gentleman with underlying history of diabetes mellitus, hypertriglyceridemia, and obesity admitted with pancreatitis with significant hypertriglyceridemia requiring initiation of insulin drip, now titrated off. Plan: Neuro: No acute issues. Cardiac: No acute issues. Pulmonary: No acute issues. Renal: No acute issues. Endo: Acute pancreatitis with hypertriglyceridemia. Now triglycerides under 500, off insulin drip. Continue gemfibrozil. CT abdomen with no evidence of pancreatic cyst or necrosis. GI: No acute issues. ID: No acute issues Heme/Onc: No acute issues. Psych: No acute issues. Miscellaneous: No acute issues. Prophylaxis: Heparin Diet: Clear liquids Patient is now stable to be transferred to [facility]. Quality Stroke Does the patient have a stroke diagnosis?: No VTE Prior VTE?: No VTE Risk Level:: Medical - moderate - high VTE Device Contraindication: N/A - Device Ordered VTE Drug Contraindication: N/A - Med Ordered
[2022-10-10] MEDS: Morphine Sulfate 4 MG/ML CARTRIDGE IVPUSH ×2 (15:48→21:24)
--- NOTE | 2022-10-10 16:36 | PM.EVENT ---
Event Note Date of Service: 10/10/22 Event Note: 32 year old male admitted to ICU for acute pancreatitis secondary to Hypertriglyceridemia. initial triglyceride level 1348, was started on insulin drip, triglyceride level trended down to 404. Insulin drip was discontinued, he was started on gemfibrozil and downgraded from the ICU. Time Spent With Patient Time: Total time managing care of this patient today ____ minutes.
[2022-10-10 17:06] LABS: Glucose, Whole Blood 183 mg/dL (60-115)
[2022-10-10 17:06] LABS: Glucose, Whole Blood 192 mg/dL (60-115)
[2022-10-10 20:09] LABS: Glucose, Whole Blood 162 mg/dL (60-115)
[2022-10-10] MEDS: Insulin Lispro 100 UNIT/ML 3 ML VIAL SUBCUT (21:22)
[2022-10-10] MEDS: Zolpidem Tartrate 5 MG TABLET PO (21:23)
[2022-10-11 01:12] VITALS: RESP 16
[2022-10-11] MEDS: Morphine Sulfate 4 MG/ML CARTRIDGE IVPUSH ×2 (01:12→06:07)
[2022-10-11 04:00] VITALS: BP 135/64; PULSE 95; RESP 18; TEMP 37.3; O2SAT 97
[2022-10-11] MEDS: Pantoprazole Sodium 40 MG in 0.9 % Sodium Chloride 100 ML 400 MG IV (06:15)
[2022-10-11 06:46] LABS: Basophils Percent Auto 0.4 % (0-2); Eosinophils Absolute Auto 0.2 X10*3/uL (0.0-0.4); Hematocrit 39.6 % (42.0-52.0); Hemoglobin 13.1 g/dl (14.0-18.0); Imm Gran Abs Auto 0.04 X10*3/uL (0.00-0.03); Imm Gran Pct Auto 0.6 % (0.0-0.4); Lymphocytes Absolute Auto 1.7 X10*3/uL (1.2-4.9); Lymphocytes Percent Auto 24.2 % (20-40); MANUAL DIFF FLAG NO; Mean Corpuscular HGB Conc 33.1 g/dl (31.0-36.0); Mean Corpuscular Hemoglobin 27.8 pg (27.0-33.0); Mean Corpuscular Volume 84.1 fL (80.0-98.0); Mean Platelet Volume 10.8 fL (9.4-12.4); Monocytes Absolute Auto 0.6 X10*3/uL (0.1-1.2); Monocytes Percent Auto 8.7 % (2-11); Neutrophils Absolute Auto 4.5 x10*3/uL (2.0-8.3); Neutrophils Percent Auto 63.1 % (45-73); Platelet Count 271 X10*3/uL (160-400); Red Blood Count 4.71 X10*6/uL (4.60-5.80); Red Cell Distribution Width 14.7 % (11.0-16.0); White Blood Count 7.1 X10*3/uL (4.8-10.8)
[2022-10-11 07:07] LABS: Albumin Level 3.7 g/dL (3.5-5.0); Anion Gap 18 (12-20); Blood Urea Nitrogen 6 mg/dL (9-16); Carbon Dioxide 20 mmol/L (22-29); Chloride 104 mmol/L (96-108); Creatinine Clr Calc Pharmacy 173.6; Estimated Glomerular Filt Rate > 60; Glucose Random 174 mg/dL (60-115); Magnesium 1.7 mg/dL (1.6-2.6); Phosphorus 3.4 mg/dL (2.7-4.5); Potassium 3.9 mmol/L (3.3-5.1); Sodium 138 mmol/L (135-145)
[2022-10-11 07:47] LABS: Glucose, Whole Blood 182 mg/dL (60-115)
[2022-10-11 08:00] VITALS: BP 137/72; PULSE 98; RESP 20; TEMP 36.9; O2SAT 96
[2022-10-11] MEDS: gemfibroziL 600 MG TABLET PO (08:06)
[2022-10-11] MEDS: Metoprolol Succinate ER 25 MG TAB.ER.24H 75 MG PO (08:06)
[2022-10-11] MEDS: Insulin Lispro 100 UNIT/ML 3 ML VIAL SUBCUT ×2 (08:07→12:01)
--- NOTE | 2022-10-11 10:01 | PM.DS ---
DS: Providers Provider Date of Service: 10/11/22 Date of admission: 10/09/22 05:14 Date of discharge: 10/11/22 Primary care physician: Reshma Keller MD Attending physician on discharge: [facility] Discharging clinician: Priscilla Bazan DS: Diagnosis Discharge Diagnosis (1) Pancreatitis: Status: Acute (2) Essential hypertriglyceridemia: Status: Acute (3) Diabetes: Status: Acute (4) HTN (hypertension): Status: Acute DS: Summary Hospital Course Hospital Course: From H&P on day of admission 32-year-old patient with history of morbid obesity and BMI of 48.7, anxiety, history of diabetes with hemoglobin A1c above 11, hypertension, hypertriglyceridemia. ?Patient presented to the emergency room with complaints of acute onset abdominal pain since yesterday, in the epigastric area, radiating towards the back, 8/10 up to 10/10 in intermittent manner, associated with nausea but no vomiting.? He did notice to have a temperature of a 100.9 degrees earlier on with some body aches but otherwise no other symptoms.? Patient reports that he had similar symptoms about 3 weeks ago but they went away and he did not seek any medical attention.? He has not had a history of pancreatitis and does not consume alcohol. In the emergency room his initial workup revealed no fever, some tachycardia with max heart rate of 116 but otherwise normal blood pressure.? White count 12.7, H&H of 14.1 and 39.3 respectively, platelets 260.? Sodium 132, potassium 4.2, chloride 97, carbon dioxide 17, anion gap 22, BUN 10, creatinine 1.14.? Blood glucose 293.? Lactic acid 1.3.? Triglycerides 1348, lipase 126.? Urinalysis significant for glucosuria.? Otherwise respiratory panel including COVID is negative.? Chest x-ray no acute disease. ?CT abdomen and pelvis with IV contrast reveals mild hazy increased attenuation of the peripancreatic fat about the peripancreatic head without necrotic or peripancreatic fluid collection.? Findings consistent with acute pancreatitis involving the peripancreatic head. ? Patient was given IV fluids, started on insulin drip, antiemetics, his pain is slightly better, no longer nauseous. acute pancreatitis secondary to hypertrigliceridemia. TG level was 1348, he was admitted to the ICU for insulin drip. His TG trended down to 404. He was started on gemfibrozil and downgraded to the medical service. His abdominal pain is improving, his diet was advanced and he is eager to return home. Dietary and lifestyle modifications were discussed. He is encouraged to follow up with his PCP. Time Spent with Patient Time attestation: Total time managing care of this patient today ____ minutes. Discharge coordination time: Greater than 30 minutes Quality: Safe Use of Opioids Does Pt have an Active Cancer Diagnosis on the Problem List?: No Quality: Stroke Does the patient have a stroke diagnosis?: No Physical Exam Vital Signs: Vital Signs: Last Vital Signs Temp 98.5 F 10/11/22 08:00 Pulse 98 10/11/22 08:00 Resp 20 10/11/22 08:00 BP 137/72 10/11/22 08:00 Pulse Ox 96 10/11/22 08:00 O2 Del Method 10/11/22 08:00 BMI result Body Mass Index 48.6 Const: General: cooperative, comfortable, alert and awake Nutritional Appearance: obese Orientation/consciousness: patient oriented x3 Resp: Effort & Inspection: normal respiratory effort and able to speak in complete sentences Auscultation: clear to auscultation bilaterally Cardio: Rate: regular rate Heart sounds: S1 normal heart sound present and S2 normal heart sound present GI: Inspection: No distended Palpation (GI): Soft to palpation Neuro: General: patient oriented x3 and CN's II-XI intact bilaterally Extrem: General: Yes no pedal edema DS: Data Data Completed and Pending Labs on day of discharge: Laboratory Results - last 24 hr 10/10/22 10/10/22 10/10/22 10:13 13:26 16:44 WBC RBC Hgb Hct MCV MCH MCHC RDW Plt Count MPV Immature Gran % (Auto) Neut % (Auto) Lymph % (Auto) [place] % (Auto) Eos % (Auto) Baso % (Auto) Lymph # (Auto) [place] # (Auto) Eos # (Auto) Baso # (Auto) Abs Immat Gran (auto) Absolute Neuts (auto) Absolute Nucleated RBC Nucleated RBC % (auto) Sodium Potassium Chloride Carbon Dioxide Anion Gap BUN Creatinine Estim Creat Clear Calc Estimated GFR POC Glucose 157 H 192 H 183 H Random Glucose Calcium Phosphorus Magnesium Albumin 10/10/22 10/11/22 10/11/22 20:04 06:14 06:14 WBC 7.1 RBC 4.71 Hgb 13.1 L Hct 39.6 L MCV 84.1 MCH 27.8 MCHC 33.1 RDW 14.7 Plt Count 271 MPV 10.8 Immature Gran % (Auto) 0.6 H Neut % (Auto) 63.1 Lymph % (Auto) 24.2 [place] % (Auto) 8.7 Eos % (Auto) 3.0 Baso % (Auto) 0.4 Lymph # (Auto) 1.7 [place] # (Auto) 0.6 Eos # (Auto) 0.2 Baso # (Auto) 0.0 Abs Immat Gran (auto) 0.04 H Absolute Neuts (auto) 4.5 Absolute Nucleated RBC 0.000 Nucleated RBC % (auto) 0.0 Sodium 138 Potassium 3.9 Chloride 104 Carbon Dioxide 20 L Anion Gap 18 BUN 6 L Creatinine 0.84 Estim Creat Clear Calc 173.6 Estimated GFR > 60 POC Glucose 162 H Random Glucose 174 H Calcium 9.0 Phosphorus 3.4 Magnesium 1.7 Albumin 3.7 10/11/22 07:26 WBC RBC Hgb Hct MCV MCH MCHC RDW Plt Count MPV Immature Gran % (Auto) Neut % (Auto) Lymph % (Auto) [place] % (Auto) Eos % (Auto) Baso % (Auto) Lymph # (Auto) [place] # (Auto) Eos # (Auto) Baso # (Auto) Abs Immat Gran (auto) Absolute Neuts (auto) Absolute Nucleated RBC Nucleated RBC % (auto) Sodium Potassium Chloride Carbon Dioxide Anion Gap BUN Creatinine Estim Creat Clear Calc Estimated GFR POC Glucose 182 H Random Glucose Calcium Phosphorus Magnesium Albumin Preliminary micro results at discharge 10/09/22 02:20 Blood Culture - Preliminary Blood - Venous No growth after 48 hours. 10/09/22 02:16 Blood Culture - Preliminary Blood - Venous No growth after 48 hours. Discharge Plan Discharge Anticipated Discharge Date/Time: 10/11/22 12:42 Patient Disposition: Home, Self-Care Discharge Diagnosis: acute pancreatitis elevated triglycerides Referrals: Reshma Keller MD [Primary Care Provider] - 1 Week Discharge Medications: New gemfibrozil 600 mg Tablet 600 mg PO BIDAC 30 Days Qty: 60 0RF Continued doxepin 25 mg capsule 1 cap PO BEDTIME metoprolol succinate 50 mg tablet extended release 24 hr 1.5 tab PO DAILY metformin 500 mg tablet 1 tab PO BID Discharge Orders: Discharge Order (Routine); Ordered 10/11/22 Ordered By: Priscilla Bazan Diet: Diabetic diet Activity on Discharge: As tolerated Stand Alone Forms: Patient Portal Discharge page Care Plan Goals: see below Health Concerns: acute pancreatitis elevated triglycerides Plan of Treatment: start taking lopid to lower triglycerides as prescribed dietary and lifestyle modification as discussed Call to schedule follow-up appointment with PCP Assessment: see discharge summary
[2022-10-11] MEDS: Acetaminophen 325 MG TABLET 650 MG PO (12:02)
[2022-10-11 12:12] LABS: Glucose, Whole Blood 170 mg/dL (60-115)
--- NOTE | 2022-10-11 13:24 | MHC.CM.PN ---
PT TO DC HOME TODAY WITH NO SERVICES PT TO ARRANGE TRANSPORT
== END 2022-10-11 13:18 | disposition home or self-care (01) | DRG 282 ==
LOC: HO.ED 05:01 → HO.EDOVER 05:21 → HO.ICU 07:52 → HO.IMC 10-10 12:25
PROVIDERS: Internal Medicine Pulmonary Disease; Admitting Provider Physician Assistant Medical; Emergency Provider Internal Medicine; PCP Internal Medicine; Visit Provider Physician Assistant Medical
DX: K85.90 Acute pancreatitis without necrosis or infection, unspecified (principal); E11.9 Type 2 diabetes mellitus without complications; F41.9 Anxiety disorder, unspecified; E66.01 Morbid (severe) obesity due to excess calories; Z68.42 Body mass index [BMI] 45.0-49.9, adult; E78.1 Pure hyperglyceridemia; I10 Essential (primary) hypertension; Z20.822 Contact with and (suspected) exposure to COVID-19; Z79.84 Long term (current) use of oral hypoglycemic drugs; Z79.899 Other long term (current) drug therapy
CPT/HCPCS: 0241U; 36415; 71045; 74177; 80048; 80053; 80061; 80076; 81001; 82009; 82040; 82803; 82947; 83605; 83690; 83735; 84100; 84478; 85025; 87040; 99285; J1170; J1650; J2060; J2270; J2405; J3010; Q9967

== ENCOUNTER → 2022-10-27 15:19 | Outpatient (BNVA) | payer OTHER, SELFPAY | PROVIDERS: PCP Internal Medicine; Visit Provider Physician Assistant Medical | DX: Z13.89 Encounter for screening for other disorder (principal) | CPT/HCPCS: 99213 ==

== ENCOUNTER 2023-10-09 19:04 | Emergency (ER) | payer OTHER, SELFPAY ==
--- NOTE | 2023-10-09 19:06 | ED_ITS ---
HPI - General Adult General Chief complaint: General Medical Stated complaint: high sugar, pancreatitis symptoms Time Seen by Provider: 10/09/23 21:45 Source: patient History of Present Illness HPI narrative: 33-year-old male who has a history of pancreatitis, diabetes, hyper triglyceridemia, presents for evaluation of elevated glucose levels. Patient states he actually just saw his primary care provider earlier today and had a freestyle August applied so he could monitor his blood glucose levels much more closely. Patient states he had several readings that were high and therefore presented to the emergency department. Denies any chest pain or shortness of breath. No fevers chills nausea or vomiting. He does report lower extremity fatigue and intermittent cramping. He does report polydipsia. No polyuria. He reports compliance with his medications. He has had elevated triglycerides. He denies any alcohol use. Patient is otherwise feeling well. In addition, the patient is complaining of upper abdominal pain. It is nonradiating. It is dull in nature. He has not tried any medication for this. Related Data Home Medications Medication Instructions Recorded Confirmed doxepin 25 mg capsule 1 cap PO BEDTIME 10/09/22 10/09/22 metformin 500 mg tablet 1 tab PO BID 10/09/22 10/09/22 metoprolol succinate 50 mg 1.5 tab PO DAILY 10/09/22 10/09/22 tablet,extended release 24 hr Previous Rx's Medication Instructions Recorded gemfibrozil 600 mg tablet 600 mg PO BIDAC 30 days #60 tabs 10/11/22 Allergies Allergy/AdvReac Type Severity Reaction Status Date / Time tomato [TOMATO] Allergy Severe HIVES, Verified 10/09/23 19:10 DIFFICULTY BREATHING, THROAT SWELLING Review of Systems 2 Constitutional: Constitutional: Reports as per HPI, Denies chills, Reports fatigue, Denies fever(s) and Denies headache(s) ENT: Denies headache(s) Cardiovascular: Cardiovascular: Denies chest pain and Denies dyspnea Respiratory: Respiratory: Denies cough and Denies dyspnea Gastrointestinal: Gastrointestinal: Reports abdominal pain, Denies constipation, Denies nausea and Denies vomiting Genitourinary: Genitourinary: Denies dysuria Neurologic: Denies headache(s) and Denies focal weakness Endocrine: Endocrine: Reports fatigue PMFSH Past Medical History Medical History Diabetes HTN (hypertension) Anxiety Social History Social History Household Members: Friend(s) Housing: Apartment Patient Tobacco Use Status: Never used Tobacco Smoked in Last 30 Days: No e-Cigarette/Vaping Use: Former Use Use of substances other than those prescribed or required for medical reasons: No Advance Directives: No Advance Directives Information Provided: No service: No Current occupational status: employed Physical Exam ED Vital Signs: Vital Signs - 24 hr 10/09/23 19:10 10/09/23 22:33 Temperature 97.2 F 98.7 F Pulse Rate 108 H 92 Respiratory Rate 18 18 Blood Pressure 184/107 H 131/77 Pulse Oximetry 97 98 Oxygen Delivery Method Room Air Room Air BMI result Body Mass Index 44.7 Const General: alert, awake and Physically active Resp Auscultation: clear to auscultation bilaterally Cardio Rate: regular rate Rhythm: regular rhythm GI Other: abdomen is soft with mild lleft upper quadrant tenderness. There is no peritoneal signs. No CVAT. No rebound or guarding. Course Course Course Narrative: This is an RME: Additional HPI, ROS, PE not included below will be deferred to primary provider. Patient is a 33-year-old male presenting to emergency department for evaluation elevated blood glucose readings, 300's, now 400's, concern for pancreatitis due to intermittent severe left upper quadrant abdominal pain and ?nerve pain? bilateral lower extremities with cramping. History of diabetes for which he takes metformin and Jardiance. Reports that this feels similar to his episode of pancreatitis in the past, last year, which was secondary to elevated triglycerides. Plan: labs Medications Administered Discontinued Medications Generic Name Dose Route Start Last Admin Trade Name Freq PRN Reason Stop Dose Admin Sodium Chloride 1,000 mls @ 999 mls/hr 10/09/23 22:15 10/09/23 23:19 Ns IV 10/09/23 23:15 Infused .Q1H1M LAURA Infusion Sodium Chloride 1,000 mls @ 999 mls/hr 10/09/23 22:15 10/09/23 23:19 Ns IV 10/09/23 23:15 999 mls/hr .Q1H1M LAURA Administration Ketorolac Tromethamine 15 mg 10/09/23 23:21 10/09/23 23:40 Ketorolac Tromethamine 15 Mg/Ml Vial IVPUSH 10/09/23 23:22 15 mg ONCE ONE Administration Medical Decision Making Medical Decision Making [facility] Narrative: 33-year-old male with a history of diabetes, hypertriglyceridemia, presents with abdominal pain, elevated glucose levels. No evidence of pancreatitis given normal pancreas levels. However patient does have significantly elevated triglycerides. The patient is aware of this and is actually scheduled to follow up with his PCP on Thursday for further evaluation. There is also no evidence of DKA. Slight elevation in CPK. Combination of 2 L of normal saline along with low-dose of Toradol has resolved the patient's symptoms. His glucose has also improved to 172 by the patient's monitor. He is requesting discharge home and feels much better than previous. Patient expresses understanding of all discharge instructions has no further questions at this time. He will continue to monitor his glucose levels and follow up with his appointment on Thursday. Differential Diagnosis Differential Diagnoses: The differential diagnosis associated with the presentation includes DKA Dehydration Rhabdomyolysis Hypertriglyceridemia Admission/Observation Consideration of admission/observation: Escalation of care including admission/observation considered consideration for possible admission if medically warranted. Lab Data [facility] Lab Attestation statement: I reviewed the patient's lab results. 10/09/23 20:19 10/09/23 20:18 Labs: Lab Results 10/09/23 10/09/23 10/09/23 Range/Units 19:09 20:10 20:18 WBC (4.8-10.8) X10*3/uL RBC (4.60-5.80) X10*6/uL Hgb (14.0-18.0) g/dl Hct (42.0-52.0) % MCV (80.0-98.0) fL MCH (27.0-33.0) pg MCHC (31.0-36.0) g/dl RDW (11.0-16.0) % Plt Count (160-400) X10*3/uL MPV (9.4-12.4) fL Immature Gran % (Auto) (0.0-0.4) % Neut % (Auto) (45-73) % Lymph % (Auto) (20-40) % [place] % (Auto) (2-11) % Eos % (Auto) (0-4) % Baso % (Auto) (0-2) % Lymph # (Auto) (1.2-4.9) X10*3/uL [place] # (Auto) (0.1-1.2) X10*3/uL Eos # (Auto) (0.0-0.4) X10*3/uL Baso # (Auto) (0.0-0.2) X10*3/uL Abs Immat Gran (auto) (0.00-0.03) X10*3/uL Absolute Neuts (auto) (2.0-8.3) x10*3/uL Absolute Nucleated RBC (0.0-0.012) X10*3/uL Nucleated RBC % (auto) (0.0-0.2) /100WBC VBG pH (7.32-7.43) VBG pCO2 mmHg VBG pO2 mmHg VBG HCO3 (22-26) mmol/L VBG O2 Saturation % VBG Base Excess mmol/L Sodium 132 L (135-145) mmol/L Potassium 4.2 (3.3-5.1) mmol/L Chloride 100 (96-108) mmol/L Carbon Dioxide 20 L (22-29) mmol/L Anion Gap 16 (12-20) BUN 14 (9-16) mg/dL Creatinine 1.39 (0.5-1.4) mg/dL Estim Creat Clear Calc 99.0 Estimated GFR 58 POC Glucose 346 H 313 H (60-115) mg/dL Random Glucose 340 H (60-115) mg/dL Calcium 10.4 H D (8.4-10.2) mg/dL Magnesium 2.1 (1.6-2.6) mg/dL Total Bilirubin 0.4 (0.0-1.0) mg/dL AST 34 (5-37) U/L ALT 52 H (0-40) U/L Alkaline Phosphatase 175 H (39-117) U/L Total Creatine Kinase 233 H (38-174) U/L Total Protein 8.9 H (6.5-8.0) g/dL Albumin 4.5 (3.5-5.0) g/dL Triglycerides 1310 H (<150) mg/dL Lipase 59 (8-78) U/L Beta-Hydroxybutyrate 0.32 H (0.02-0.27) mmol/L Urine Color Urine Appearance Urine pH (5.0-9.0) Ur Specific [place] (1.005-1.025) Urine Protein (Neg-Trace) mg/dL Urine Glucose (UA) (Negative) mg/dL Urine Ketones (Negative) mg/dL Urine Blood (Negative) Urine Nitrite (Negative) Ur Leukocyte Esterase (Negative) Urine RBC (0-2) /HPF Urine WBC (0-5) /HPF Ur Squamous Epith Cells (0-2) /HPF Urine Bacteria (None Seen) Hyaline Casts (0-2) /LPF 10/09/23 10/09/23 10/09/23 Range/Units 20:19 20:23 23:26 WBC 6.8 (4.8-10.8) X10*3/uL RBC 5.39 (4.60-5.80) X10*6/uL Hgb 15.9 D (14.0-18.0) g/dl Hct 43.8 (42.0-52.0) % MCV 81.3 (80.0-98.0) fL MCH 29.5 (27.0-33.0) pg MCHC 36.3 H (31.0-36.0) g/dl RDW 13.6 (11.0-16.0) % Plt Count 305 (160-400) X10*3/uL MPV 11.3 (9.4-12.4) fL Immature Gran % (Auto) 0.3 (0.0-0.4) % Neut % (Auto) 54.2 (45-73) % Lymph % (Auto) 36.4 (20-40) % [place] % (Auto) 6.7 (2-11) % Eos % (Auto) 1.8 (0-4) % Baso % (Auto) 0.6 (0-2) % Lymph # (Auto) 2.5 (1.2-4.9) X10*3/uL [place] # (Auto) 0.5 (0.1-1.2) X10*3/uL Eos # (Auto) 0.1 (0.0-0.4) X10*3/uL Baso # (Auto) 0.0 (0.0-0.2) X10*3/uL Abs Immat Gran (auto) 0.02 (0.00-0.03) X10*3/uL Absolute Neuts (auto) 3.7 (2.0-8.3) x10*3/uL Absolute Nucleated RBC 0.000 (0.0-0.012) X10*3/uL Nucleated RBC % (auto) 0.0 (0.0-0.2) /100WBC VBG pH 7.49 H (7.32-7.43) VBG pCO2 28 mmHg VBG pO2 103 mmHg VBG HCO3 21 L (22-26) mmol/L VBG O2 Saturation 99.0 % VBG Base Excess -0.1 mmol/L Sodium (135-145) mmol/L Potassium (3.3-5.1) mmol/L Chloride (96-108) mmol/L Carbon Dioxide (22-29) mmol/L Anion Gap (12-20) BUN (9-16) mg/dL Creatinine (0.5-1.4) mg/dL Estim Creat Clear Calc Estimated GFR POC Glucose 237 H (60-115) mg/dL Random Glucose (60-115) mg/dL Calcium (8.4-10.2) mg/dL Magnesium (1.6-2.6) mg/dL Total Bilirubin (0.0-1.0) mg/dL AST (5-37) U/L ALT (0-40) U/L Alkaline Phosphatase (39-117) U/L Total Creatine Kinase (38-174) U/L Total Protein (6.5-8.0) g/dL Albumin (3.5-5.0) g/dL Triglycerides (<150) mg/dL Lipase (8-78) U/L Beta-Hydroxybutyrate (0.02-0.27) mmol/L Urine Color Yellow Urine Appearance Clear Urine pH 5.5 (5.0-9.0) Ur Specific [place] >= 1.030 H (1.005-1.025) Urine Protein 30 (1+) H (Neg-Trace) mg/dL Urine Glucose (UA) >=1000 H (Negative) mg/dL Urine Ketones Trace (Negative) mg/dL Urine Blood Negative (Negative) Urine Nitrite Negative (Negative) Ur Leukocyte Esterase Negative (Negative) Urine RBC 0-2 (0-2) /HPF Urine WBC 0-5 (0-5) /HPF Ur Squamous Epith Cells 0-2 (0-2) /HPF Urine Bacteria None Seen (None Seen) Hyaline Casts 0-2 (0-2) /LPF Radiology Impression Discussion of test interpretation with radiology: I have reviewed the radiologist's reading. Radiologist Impression: [id number] [place] [address] XRay Report Signed Patient: Mitch Hansen MR#: [id number] : 1990 Acct:[id number] Age/Sex: 32 / M ADM Date: 10/09/22 Loc: .ED Attending Dr: Ordering Physician: Yan Laguerre MD Date of Service: 10/09/22 Procedure(s): XR chest 1V Accession Number(s): [id number] cc: Yan Laguerre MD~ EXAMINATION: XR CHEST CLINICAL INFORMATION: Fever COMPARISON: None TECHNIQUE: Frontal view of the chest was obtained. FINDINGS: No significant abnormality is noted involving the heart, lungs, mediastinum, bony thorax or soft tissues. XR/XR chest 1V IMPRESSION: Unremarkable examination. Dictated By: Santana Huffman MD Signed By: <Electronically signed by Santana Huffman MD in OV> 10/09/222 DD/ 4 TD/TT: Clean Up Worker: Manuelito External Record Review External record reviewed: Inpatient record Tests considered The following testing was considered but not selected: Consideration for CT, defer at this time given the patient's physical exam and laboratory findings. Prescription Management I considered prescription management with: Pain Medication Chronic Conditions Patient?s care impacted by: Diabetes Discharge Plan Discharge Clinical Impression: Essential hypertriglyceridemia, Hyperglycemia due to diabetes mellitus Patient Disposition: Home, Self-Care Instructions: Heart Healthy Diet (ED), Hyperlipidemia (DC) Additional Instructions: Closely monitor your glucose levels. Continue current medications as directed. Drink plenty of water. Follow-up with your primary care provider at your current appointment on Thursday. Return to the emergency department if you have any worsening of symptoms, or any concerns. Get well soon! Prescriptions: No Action doxepin 25 mg capsule 1 cap PO BEDTIME metoprolol succinate 50 mg tablet extended release 24 hr 1.5 tab PO DAILY metformin 500 mg tablet 1 tab PO BID gemfibrozil 600 mg Tablet 600 mg PO BIDAC 30 Days Qty: 60 0RF Stand Alone Forms: Work/School Release
[2023-10-09 19:10] VITALS: BP 184/107; PULSE 108; RESP 18; TEMP 36.2; O2SAT 97; BMI 44.7
--- NOTE | 2023-10-09 20:23 | MHC.EDTECH ---
PATIENT BLOOD SUGAR CHECK ,BLOOD DRAWN AND URINE SAMPLE COLLECTED AND SENT TO LAB .
[2023-10-09 20:25] LABS: MANUAL DIFF FLAG NO
[2023-10-09 20:30] LABS: Venous Blood Gas Refer to POC result
[2023-10-09 20:31] LABS: VBG Base Excess -0.1 mmol/L; VBG HCO3 21 mmol/L (22-26); VBG pCO2 28 mmHg; VBG pH 7.49 (7.32-7.43); VBG pO2 103 mmHg
[2023-10-09 20:36] LABS: Basophils Percent Auto 0.6 % (0-2); Eosinophils Absolute Auto 0.1 X10*3/uL (0.0-0.4); Eosinophils Percent Auto 1.8 % (0-4); Hematocrit 43.8 % (42.0-52.0); Hemoglobin 15.9 g/dl (14.0-18.0); Imm Gran Abs Auto 0.02 X10*3/uL (0.00-0.03); Imm Gran Pct Auto 0.3 % (0.0-0.4); Lymphocytes Absolute Auto 2.5 X10*3/uL (1.2-4.9); Lymphocytes Percent Auto 36.4 % (20-40); Mean Corpuscular HGB Conc 36.3 g/dl (31.0-36.0); Mean Corpuscular Hemoglobin 29.5 pg (27.0-33.0); Mean Corpuscular Volume 81.3 fL (80.0-98.0); Mean Platelet Volume 11.3 fL (9.4-12.4); Monocytes Absolute Auto 0.5 X10*3/uL (0.1-1.2); Monocytes Percent Auto 6.7 % (2-11); Neutrophils Absolute Auto 3.7 x10*3/uL (2.0-8.3); Neutrophils Percent Auto 54.2 % (45-73); Platelet Count 305 X10*3/uL (160-400); Red Blood Count 5.39 X10*6/uL (4.60-5.80); Red Cell Distribution Width 13.6 % (11.0-16.0); White Blood Count 6.8 X10*3/uL (4.8-10.8)
[2023-10-09 20:42] LABS: Appearance Urine Clear; Color Urine Yellow; Glucose Urine UA >=1000 mg/dL (Negative); Leukocyte Esterase Urine Negative (Negative); Nitrite Urine Negative (Negative); PH 5.5 (5.0-9.0); Specific Gravity - Urine >= 1.030 (1.005-1.025); UMIC TRIGGER UACC YES; Urine Blood Negative (Negative); Urine Ketones Trace mg/dL (Negative); Urine Protein 30 (1+) mg/dL (Neg-Trace)
[2023-10-09 20:47] LABS: Bacteria Urine None Seen (None Seen); Hyaline Casts Urine 0-2 /LPF (0-2); RBC Urine 0-2 /HPF (0-2); Squamous Epithelial Cell Urine 0-2 /HPF (0-2); WBC Urine 0-5 /HPF (0-5)
[2023-10-09 20:49] LABS: Alanine Aminotransferase 52 U/L (0-40); Albumin Level 4.5 g/dL (3.5-5.0); Alkaline Phosphatase 175 U/L (39-117); Anion Gap 16 (12-20); Aspartate Amino Transferase 34 U/L (5-37); Bilirubin Total 0.4 mg/dL (0.0-1.0); Blood Urea Nitrogen 14 mg/dL (9-16); Calcium 10.4 mg/dL (8.4-10.2); Carbon Dioxide 20 mmol/L (22-29); Chloride 100 mmol/L (96-108); Estimated Glomerular Filt Rate 58; Glucose Random 340 mg/dL (60-115); Lipase 59 U/L (8-78); Potassium 4.2 mmol/L (3.3-5.1); Sodium 132 mmol/L (135-145); Total Protein 8.9 g/dL (6.5-8.0); Triglycerides 1310 mg/dL (<150)
[2023-10-09 21:41] LABS: Glucose, Whole Blood 313 mg/dL (60-115)
[2023-10-09 21:52] LABS: Glucose, Whole Blood 346 mg/dL (60-115)
[2023-10-09 22:25] LABS: Beta-Hydroxybutyrate 0.32 mmol/L (0.02-0.27)
[2023-10-09 22:26] LABS: Magnesium 2.1 mg/dL (1.6-2.6)
[2023-10-09] MEDS: 0.9 % Sodium Chloride 1,000 ML 999 ML IV ×2 (22:31→23:19)
[2023-10-09 22:33] VITALS: BP 131/77; PULSE 92; RESP 18; TEMP 37.1; O2SAT 98
--- NOTE | 2023-10-09 23:18 | PC.NURSE ---
Assumed care of pt. Pt lying on stretcher, respirations even and unlabored, endorsing 6/10 abdominal pain, mid abd. IVF running.
[2023-10-09 23:34] LABS: Glucose, Whole Blood 237 mg/dL (60-115)
[2023-10-09] MEDS: Ketorolac Tromethamine 15 MG/ML VIAL IVPUSH (23:40)
== END 2023-10-10 00:50 | disposition home or self-care (01) ==
PROVIDERS: Nurse Practitioner Family; Physician Assistant; Emergency Provider Internal Medicine; PCP Internal Medicine
DX: E78.1 Pure hyperglyceridemia (principal); E11.65 Type 2 diabetes mellitus with hyperglycemia; R10.10 Upper abdominal pain, unspecified; Z79.84 Long term (current) use of oral hypoglycemic drugs; Z79.899 Other long term (current) drug therapy
CPT/HCPCS: 36415; 80053; 81001; 82010; 82550; 82803; 82947; 83690; 83735; 84478; 85025; 96361; 96374; 99284; 99285; J1885

== ENCOUNTER 2023-11-25 03:41 | Emergency (ER) | payer OTHER, SELFPAY ==
--- NOTE | ~2023-11-25 | XR_ITS ---
EXAMINATION: XR CHEST CLINICAL INFORMATION: Dyspnea COMPARISON: 10/09/2022 TECHNIQUE: Frontal view of the chest was obtained. FINDINGS: Lung volumes are symmetric. No focal consolidation is seen. No evidence of pneumothorax, pleural effusion, or pulmonary edema. The cardiomediastinal contour is unremarkable. No acute osseous findings are seen. XR/XR chest 1V IMPRESSION: No acute cardiopulmonary findings.
[2023-11-25 03:44] VITALS: BP 180/103; PULSE 127; RESP 24; TEMP 36.9; O2SAT 98; BMI 47.0
[2023-11-25 04:16] VITALS: BP 153/87; PULSE 107; RESP 22; O2SAT 96
[2023-11-25 04:26] LABS: Glucose, Whole Blood 168 mg/dL (60-115)
[2023-11-25 04:33] LABS: Influenza A PCR POSITIVE (Negative); Influenza B PCR NEGATIVE (Negative); Resp Syncy Virus RNA Qual PCR NEGATIVE (Negative); SARS COV2 PCR INHOUSE NEGATIVE (Negative)
--- NOTE | 2023-11-25 04:51 | ED.SOB ---
HPI - SOB/Dyspnea General Chief Complaint: Dyspnea Stated Complaint: SOB Time Seen by Provider: 11/25/23 03:59 Source: patient Mode of arrival: ambulatory History of Present Illness HPI Narrative: 33-year-old male who is a type 2 diabetic presents with increased shortness of breath with exertion, productive cough, chills, diarrhea and states that he has recently been exposed to flu and COVID. Related Data Home Medications Medication Instructions Recorded Confirmed doxepin 25 mg capsule 1 cap PO BEDTIME 10/09/22 10/09/22 metformin 500 mg tablet 1 tab PO BID 10/09/22 10/09/22 metoprolol succinate 50 mg 1.5 tab PO DAILY 10/09/22 10/09/22 tablet,extended release 24 hr Previous Rx's Medication Instructions Recorded gemfibrozil 600 mg tablet 600 mg PO BIDAC 30 days #60 tabs 10/11/22 oseltamivir 75 mg capsule (Tamiflu) 75 mg PO BID 5 days #10 caps 11/25/23 Allergies Allergy/AdvReac Type Severity Reaction Status Date / Time tomato [TOMATO] Allergy Severe HIVES, Verified 11/25/23 03:42 DIFFICULTY BREATHING, THROAT SWELLING Review of Systems Review of Systems: Pertinent positives and negatives as stated in HPI PMFSH Past Medical History Source: nursing notes reviewed Medical History Diabetes HTN (hypertension) Anxiety Social History Social History Household Members: Friend(s) Housing: Apartment Patient Tobacco Use Status: Never used Tobacco e-Cigarette/Vaping Use: Former Use Advance Directives: No Advance Directives Information Provided: No service: No Current occupational status: employed Physical Exam Vital Signs: Vital Signs: Last Vital Signs Temp 98 F 11/25/23 05:00 Pulse 100 11/25/23 05:00 Resp 20 11/25/23 05:00 BP 153/87 H 11/25/23 05:00 Pulse Ox 98 11/25/23 05:00 O2 Del Method Room Air 11/25/23 05:00 BMI result Body Mass Index 47.0 VITAL SIGNS: Reviewed. GENERAL: Well developed, well nourished, in no acute distress. HEAD: Normocephalic/atraumatic EYES: PERRLA, EOMI EARS: Ext canals without abnormality, TMs non-bulging and non-erythematous NOSE: Nares patent bilateral OROPHARYNX: no oral lesions noted, posterior pharynx clear and non-erythematous without noted tonsillar enlargement/erythema/exudates NECK: Supple, no adenopathy LUNGS: Normal breath sounds. No adventitious sounds or accessory muscle use. SpO2<98> CARDIOVASCULAR: Regular rate and rhythm without noted murmurs ABDOMEN: Soft, non-tender, non-distended with bowel sounds. MUSCULOSKELETAL: No tenderness, deformities, or effusions noted on gross inspection. EXTREMITIES: No cyanosis, clubbing or edema. SKIN: Inspection of the skin reveals no rashes, diaphoresis NEUROLOGIC: Alert and oriented x 4. Strength and sensation to light touch were grossly intact x 4. Medications Administered Discontinued Medications Generic Name Dose Route Start Last Admin Trade Name Freq PRN Reason Stop Dose Admin Acetaminophen 975 mg 11/25/23 04:52 11/25/23 04:58 Acetaminophen 325 Mg Tablet PO 11/25/23 04:53 975 mg ONCE ONE Administration Ibuprofen 400 mg 11/25/23 04:52 11/25/23 04:58 Ibuprofen 400 Mg Tablet PO 11/25/23 04:53 400 mg ONCE ONE Administration Oseltamivir Phosphate 75 mg 11/25/23 04:51 11/25/23 04:58 Oseltamivir Phosphate 75 Mg Capsule PO 11/25/23 04:52 75 mg ONCE ONE Administration Medical Decision Making Medical Decision Making [facility] Narrative: 33-year-old male with history and clinical presentation, DDX: Viral illness, febrile, mildly dehydrated. I reviewed all investigations, CXR negative for infiltrate or venous congestion and viral testing positive for Influenza A. Patient received combination analgesics as well as initial dose of Tamiflu Differential Diagnosis Differential Diagnoses: The differential diagnosis associated with the presentation includes Please see the discussion above Admission/Observation Consideration of admission/observation: Escalation of care including admission/observation considered Please see the discussion above Lab Data Labs: Lab Results 11/25/23 11/25/23 Range/Units 03:50 04:22 POC Glucose 168 H (60-115) mg/dL Influenza Type A (PCR) POSITIVE A (Negative) Influenza Type B (PCR) NEGATIVE (Negative) RSV RNA Qual (PCR) NEGATIVE (Negative) SARS-CoV-2 RNA (RT-PCR) NEGATIVE (Negative) Discharge Plan Discharge Clinical Impression: Viral syndrome, Influenza A Patient Disposition: Home, Self-Care Instructions: Influenza (ED), Viral Syndrome (ED) Additional Instructions: 1. Complete the Tamiflu as prescribed. Recommend continued use of Tylenol and ibuprofen as needed for body aches/headaches/temperatures greater than 100.4. Prescriptions: New oseltamivir [Tamiflu] 75 mg capsule 75 mg PO BID 5 Days Qty: 10 0RF No Action doxepin 25 mg capsule 1 cap PO BEDTIME metoprolol succinate 50 mg tablet extended release 24 hr 1.5 tab PO DAILY metformin 500 mg tablet 1 tab PO BID gemfibrozil 600 mg Tablet 600 mg PO BIDAC 30 Days Qty: 60 0RF Referrals: Reshma Keller MD [Primary Care Provider] - Interventions: ED Discharge Assessment Last Done: 11/25/23 05:00 Discharge Date/Time: 11/25/23 05:00
[2023-11-25] MEDS: Ibuprofen 400 MG TABLET PO (04:58)
[2023-11-25] MEDS: Oseltamivir Phosphate 75 MG CAPSULE PO (04:58)
[2023-11-25] MEDS: Acetaminophen 325 MG TABLET 975 MG PO (04:58)
[2023-11-25 05:00] VITALS: BP 153/87; PULSE 100; RESP 20; TEMP 36.6; O2SAT 98
== END 2023-11-25 05:00 | disposition home or self-care (01) ==
PROVIDERS: Emergency Provider Student in an Organized Health Care Education/Training Program; PCP Internal Medicine
DX: J10.1 Influenza due to other identified influenza virus with other respiratory manifestations (principal); R06.02 Shortness of breath; R05.9 Cough, unspecified; R19.7 Diarrhea, unspecified
CPT/HCPCS: 0241U; 71045; 82947; 99283

== ENCOUNTER 2023-12-07 01:59 | Emergency (ER) | payer OTHER, SELFPAY ==
[2023-12-07 02:10] VITALS: BP 156/93; PULSE 123; RESP 20; TEMP 37.3; O2SAT 99; BMI 44.2
[2023-12-07 02:30] LABS: Basophils Percent Auto 0.3 % (0-2); Eosinophils Absolute Auto 0.1 X10*3/uL (0.0-0.4); Eosinophils Percent Auto 0.6 % (0-4); Hematocrit 48.6 % (42.0-52.0); Hemoglobin 16.1 g/dl (14.0-18.0); Imm Gran Abs Auto 0.03 X10*3/uL (0.00-0.03); Imm Gran Pct Auto 0.2 % (0.0-0.4); Lymphocytes Absolute Auto 0.8 X10*3/uL (1.2-4.9); Lymphocytes Percent Auto 5.5 % (20-40); Mean Corpuscular HGB Conc 33.1 g/dl (31.0-36.0); Mean Corpuscular Hemoglobin 28.3 pg (27.0-33.0); Mean Corpuscular Volume 85.4 fL (80.0-98.0); Mean Platelet Volume 9.9 fL (9.4-12.4); Monocytes Absolute Auto 0.8 X10*3/uL (0.1-1.2); Monocytes Percent Auto 5.6 % (2-11); Neutrophils Absolute Auto 12.2 x10*3/uL (2.0-8.3); Neutrophils Percent Auto 87.8 % (45-73); Platelet Count 404 X10*3/uL (160-400); Red Blood Count 5.69 X10*6/uL (4.60-5.80); Red Cell Distribution Width 13.8 % (11.0-16.0); White Blood Count 13.9 X10*3/uL (4.8-10.8)
[2023-12-07 02:31] LABS: MANUAL DIFF FLAG NO
[2023-12-07 02:54] LABS: Anion Gap 19 (12-20); Blood Urea Nitrogen 16 mg/dL (9-16); Carbon Dioxide 20 mmol/L (22-29); Chloride 106 mmol/L (96-108); Creatinine Clr Calc Pharmacy 103.6; Estimated Glomerular Filt Rate > 60; Glucose Random 176 mg/dL (60-115); Potassium 4.7 mmol/L (3.3-5.1); Sodium 140 mmol/L (135-145)
[2023-12-07 03:07] LABS: Influenza A PCR POSITIVE (Negative); Influenza B PCR NEGATIVE (Negative); Resp Syncy Virus RNA Qual PCR NEGATIVE (Negative); SARS COV2 PCR INHOUSE NEGATIVE (Negative)
[2023-12-07 04:13] VITALS: BP 145/71; PULSE 116; RESP 18; TEMP 39.3; O2SAT 99
[2023-12-07] MEDS: 0.9 % Sodium Chloride 1,000 ML 999 ML IV (04:13)
[2023-12-07] MEDS: ondansetron HCL 4 MG/2 ML VIAL IVPUSH (04:14)
[2023-12-07] MEDS: Ketorolac Tromethamine 30 MG/ML VIAL 15 MG IVPUSH (04:23)
[2023-12-07] MEDS: Acetaminophen 325 MG TABLET 975 MG PO (04:24)
--- NOTE | 2023-12-07 04:30 | ED.ABDPAIN ---
HPI - Abdominal Pain General Chief Complaint: Abdominal Pain Stated Complaint: unique virus expo Time Seen by Provider: 12/07/23 03:46 Source: patient Mode of arrival: ambulatory History of Present Illness HPI narrative: 33-year-old male with presentation for multiple episodes of nausea, vomiting, diarrhea, chills and stating that he was exposed to norovirus so work and has associated abdominal pain. Patient has recently recovered from influenza a infection. Related Data Home Medications ?Medication ?Instructions ?Recorded ?Confirmed doxepin 25 mg capsule 1 cap PO BEDTIME 10/09/22 10/09/22 metformin 500 mg tablet 1 tab PO BID 10/09/22 10/09/22 metoprolol succinate 50 mg 1.5 tab PO DAILY 10/09/22 10/09/22 tablet,extended release 24 hr Previous Rx's ?Medication ?Instructions ?Recorded gemfibrozil 600 mg tablet 600 mg PO BIDAC 30 days #60 tabs 10/11/22 oseltamivir 75 mg capsule (Tamiflu) 75 mg PO BID 5 days #10 caps 11/25/23 ondansetron 4 mg disintegrating 4 mg PO Q8H PRN nausea and 12/07/23 tablet vomiting #7 tabs Allergies Allergy/AdvReac Type Severity Reaction Status Date / Time tomato [TOMATO] Allergy Severe HIVES, Verified 12/07/23 02:12 DIFFICULTY BREATHING, THROAT SWELLING Review of Systems Review of Systems Pertinent positives and negatives as stated in HPI PMFSH Past Medical History Source: nursing notes reviewed Medical History Diabetes HTN (hypertension) Anxiety Social History Social History Household Members: Friend(s) Housing: Apartment Patient Tobacco Use Status: Never used Tobacco e-Cigarette/Vaping Use: Former Use Advance Directives: No Advance Directives Information Provided: No service: No Current occupational status: employed Physical Exam ED Vital Signs: Vital Signs - 24 hr 12/07/23 02:10 12/07/23 04:13 12/07/23 05:38 Temperature 99.2 F 102.7 F H 99.0 F Pulse Rate 123 H 116 H 118 H Respiratory Rate 20 18 18 Blood Pressure 156/93 H 145/71 H 103/58 L Pulse Oximetry 99 99 95 Oxygen Delivery Method Room Air Room Air Room Air BMI result Body Mass Index 44.2 VITAL SIGNS: Reviewed. GENERAL: Well developed, well nourished, in no acute distress. HEAD: Normocephalic/atraumatic EYES: PERRLA, EOMI EARS: Ext canals without abnormality NOSE: Nares patent bilateral OROPHARYNX: no oral lesions noted, posterior pharynx clear NECK: Supple, no adenopathy LUNGS: Normal breath sounds. No adventitious sounds or accessory muscle use. SpO2<99> CARDIOVASCULAR: Regular rate and rhythm without noted murmurs ABDOMEN: Soft, non-tender, non-distended with bowel sounds. MUSCULOSKELETAL: No tenderness, deformities, or effusions noted on gross inspection. EXTREMITIES: No cyanosis, clubbing or edema. SKIN: Inspection of the skin reveals no rashes NEUROLOGIC: Alert and oriented x 4. Strength and sensation to light touch were grossly intact x 4. Medical Decision Making Medical Decision Making [facility] Narrative: 0415: 33-year-old male with history and clinical presentation, DDX: Intra-abdominal infection, viral gastroenteritis with dehydration, possible pancreatitis but felt to be less likely I reviewed all investigations and hematologic indices demonstrates a non infectious leukocytosis and suspect that this is reactive/stress response to multiple episodes of nausea and vomiting. Patient febrile secondary to gastroenteritis and received both Toradol and Tylenol. Chemistry indices negative for PITO/electrolyte derangements. Patient is still testing positive for influenza A but was discharged on 11/24 with Tamiflu. No clinical findings to suggest underlying pneumonia. 0545: On re-evaluation patient is febrile state has completely resolved and he reports feeling much better and denies any abdominal discomfort at this time. Patient is otherwise hemodynamically stable for discharge to home. Differential Diagnosis Differential Diagnoses: The differential diagnosis associated with the presentation includes Please see the discussion above Admission/Observation Consideration of admission/observation: Escalation of care including admission/observation considered Please see the discussion above Lab Data [facility] Lab Attestation statement: I reviewed the patient's lab results. Please see the discussion above 12/07/23 02:22 12/07/23 02:22 Labs: Lab Results 12/07/23 12/07/23 12/07/23 Range/Units 02:22 04:32 04:57 WBC 13.9 H (4.8-10.8) X10*3/uL RBC 5.69 (4.60-5.80) X10*6/uL Hgb 16.1 (14.0-18.0) g/dl Hct 48.6 (42.0-52.0) % MCV 85.4 (80.0-98.0) fL MCH 28.3 (27.0-33.0) pg MCHC 33.1 (31.0-36.0) g/dl RDW 13.8 (11.0-16.0) % Plt Count 404 H D (160-400) X10*3/uL MPV 9.9 (9.4-12.4) fL Immature Gran % (Auto) 0.2 (0.0-0.4) % Neut % (Auto) 87.8 H (45-73) % Lymph % (Auto) 5.5 L (20-40) % [place] % (Auto) 5.6 (2-11) % Eos % (Auto) 0.6 (0-4) % Baso % (Auto) 0.3 (0-2) % Lymph # (Auto) 0.8 L (1.2-4.9) X10*3/uL [place] # (Auto) 0.8 (0.1-1.2) X10*3/uL Eos # (Auto) 0.1 (0.0-0.4) X10*3/uL Baso # (Auto) 0.0 (0.0-0.2) X10*3/uL Abs Immat Gran (auto) 0.03 (0.00-0.03) X10*3/uL Absolute Neuts (auto) 12.2 H (2.0-8.3) x10*3/uL Absolute Nucleated RBC 0.000 (0.0-0.012) X10*3/uL Nucleated RBC % (auto) 0.0 (0.0-0.2) /100WBC Sodium 140 (135-145) mmol/L Potassium 4.7 (3.3-5.1) mmol/L Chloride 106 (96-108) mmol/L Carbon Dioxide 20 L (22-29) mmol/L Anion Gap 19 (12-20) BUN 16 (9-16) mg/dL Creatinine 1.32 (0.5-1.4) mg/dL Estim Creat Clear Calc 103.6 Estimated GFR > 60 POC Glucose 150 H (60-115) mg/dL Random Glucose 176 H (60-115) mg/dL Lactic Acid 1.6 (0.5-2.0) mmol/L Calcium 10.0 (8.4-10.2) mg/dL Influenza Type A (PCR) POSITIVE A (Negative) Influenza Type B (PCR) NEGATIVE (Negative) RSV RNA Qual (PCR) NEGATIVE (Negative) SARS-CoV-2 RNA (RT-PCR) NEGATIVE (Negative) External Record Review External record reviewed: Outpatient record, Prior outpatient labs and Prior outpatient radiology Medications Administered Discontinued Medications Generic Name Dose Route Start Last Admin Trade Name Freq PRN Reason Stop Dose Admin Acetaminophen 975 mg 12/07/23 04:18 12/07/23 04:24 Acetaminophen 325 Mg Tablet PO 12/07/23 04:19 975 mg ONCE ONE Administration Sodium Chloride 1,000 mls @ 999 mls/hr 12/07/23 04:15 12/07/23 04:13 Ns IV 12/07/23 05:15 999 mls/hr .Q1H1M LAURA Administration Ketorolac Tromethamine 15 mg 12/07/23 04:18 12/07/23 04:23 Ketorolac Tromethamine 30 Mg/Ml Vial IVPUSH 12/07/23 04:19 15 mg ONCE ONE Administration Ondansetron HCl 4 mg 12/07/23 04:11 12/07/23 04:14 Ondansetron Hcl 4 Mg/2 Ml Vial IVPUSH 12/07/23 04:12 4 mg ONCE ONE Administration Critical Care Time Critical Care Time Critical Care Time: Yes Total Critical Care Time: 45 Attestation: I personally attest to this time spent taking care of the patient. Discharge Plan Discharge Clinical Impression: Gastroenteritis, Dehydration Patient Disposition: Home, Self-Care Instructions: Dehydration (ED), Gastroenteritis (ED) Additional Instructions: 1. Resume all home medications as prescribed. 2. You have been prescribed antinausea medication and should continue to stay well hydrated and the diarrhea will pass. 3. Please follow-up with primary care doctor in the next 1-2 days. Do not hesitate to return to the emergency room for any worsening symptoms. Prescriptions: New ondansetron 4 mg tablet,disintegrating 4 mg PO Q8H PRN (Reason: nausea and vomiting) Qty: 7 0RF No Action doxepin 25 mg capsule 1 cap PO BEDTIME metoprolol succinate 50 mg tablet extended release 24 hr 1.5 tab PO DAILY metformin 500 mg tablet 1 tab PO BID gemfibrozil 600 mg Tablet 600 mg PO BIDAC 30 Days Qty: 60 0RF oseltamivir [Tamiflu] 75 mg capsule 75 mg PO BID 5 Days Qty: 10 0RF Referrals: Reshma Keller MD [Primary Care Provider] - Stand Alone Forms: Work/School Release Print Language: Turkish
[2023-12-07 04:36] LABS: Glucose, Whole Blood 150 mg/dL (60-115)
[2023-12-07 05:13] LABS: Lactic Acid 1.6 mmol/L (0.5-2.0)
[2023-12-07 05:38] VITALS: BP 103/58; PULSE 118; RESP 18; TEMP 37.2; O2SAT 95
[2023-12-07 06:20] VITALS: BP 103/58; PULSE 118; RESP 18; TEMP 37.2
[2023-12-07 06:25] VITALS: BP 103/58; PULSE 118; RESP 18; TEMP 37.2
== END 2023-12-07 06:26 | disposition home or self-care (01) ==
PROVIDERS: Emergency Provider Student in an Organized Health Care Education/Training Program; PCP Internal Medicine
DX: K52.9 Noninfective gastroenteritis and colitis, unspecified (principal); E86.0 Dehydration; I10 Essential (primary) hypertension; E11.9 Type 2 diabetes mellitus without complications; Z20.828 Contact with and (suspected) exposure to other viral communicable diseases
CPT/HCPCS: 0241U; 36415; 80048; 82947; 83605; 85025; 87040; 96361; 96374; 96375; 99284; J1885; J2405

== ENCOUNTER 2024-05-11 19:03 | Emergency (ER) | payer OTHER, SELFPAY ==
[2024-05-11 19:27] VITALS: BP 144/83; PULSE 103; RESP 18; TEMP 37; O2SAT 96; BMI 47.3
--- NOTE | 2024-05-11 19:27 | ED.GENADULT ---
HPI - General Adult General Chief complaint: Eye Problems Stated complaint: pressure behind eye, blurred vision Time Seen by Provider: 05/11/24 19:55 Source: patient Mode of arrival: ambulatory Limitations: no limitations History of Present Illness ED Provider: tanmay MARINO narrative: Patient is diabetic complaining of irritation in the right eye feel like sand feeling and something dragging behind the eyes no vision loss no fever no chills had slight purulent discharge in the right eye no diplopia Related Data Home Medications ?Medication ?Instructions ?Recorded ?Confirmed doxepin 25 mg capsule 1 cap PO BEDTIME 10/09/22 10/09/22 metformin 500 mg tablet 1 tab PO BID 10/09/22 10/09/22 metoprolol succinate 50 mg 1.5 tab PO DAILY 10/09/22 10/09/22 tablet,extended release 24 hr Previous Rx's ?Medication ?Instructions ?Recorded gemfibrozil 600 mg tablet 600 mg PO BIDAC 30 days #60 tabs 10/11/22 oseltamivir 75 mg capsule (Tamiflu) 75 mg PO BID 5 days #10 caps 11/25/23 ondansetron 4 mg disintegrating 4 mg PO Q8H PRN nausea and 12/07/23 tablet vomiting #7 tabs tobramycin 0.3 % eye drops 2 drp ophthalmic (eye) Q4H #5 mL 05/12/24 Allergies Allergy/AdvReac Type Severity Reaction Status Date / Time tomato [TOMATO] Allergy Severe HIVES, Verified 05/11/24 19:33 DIFFICULTY BREATHING, THROAT SWELLING Review of Systems Review of Systems: Yes all other systems are reviewed and are negative PMF Past Medical History Medical History Diabetes HTN (hypertension) Anxiety Social History Social History Household Members: Friend(s) Housing: Apartment Patient Tobacco Use Status: Never used Tobacco e-Cigarette/Vaping Use: Former Use Use of substances other than those prescribed or required for medical reasons: No Advance Directives: No Advance Directives Information Provided: No service: No Current occupational status: employed Physical Exam ED Vital Signs: Vital Signs - 24 hr 05/11/24 19:27 05/12/24 00:54 Temperature 98.6 F 98.7 F Pulse Rate 103 H 91 Respiratory Rate 18 18 Blood Pressure 144/83 H 153/81 H Pulse Oximetry 96 Oxygen Delivery Method Room Air Room Air BMI result Body Mass Index 47.3 Appearance: Alert. Oriented X3. No acute distress. Eyes: PERRLA, No Nystagmus anterior chamber normal fundoscopy normal IOP 13 in the right eye 15 in the left erythema of the palpebral conjunctiva right side no exudates EOMI ENT: Pharynx normal. Oral Mucosa moist Neck: Normal inspection. Neck supple. CVS: Normal heart rate and rhythm. Pulses normal. Respiratory: No respiratory distress. Equal air entry bilateral, Abdomen: Soft and nontender. Bowel sounds are present, Skin: Skin warm and dry. Normal skin color. Normal skin turgor. Extremities: No lower extremity edema. No calf tenderness Neuro: Oriented X 3. No motor deficit. Course Course Course Narrative: This is an RME done by GRANT Tellez: Additional HPI, ROS, PE not included below will be deferred to primary provider. 33 year old male presents w/ pain behind right eye and blurred vision since he awoke this afternoon (2:00pm) when he woke up and worsening ever since. He went to work all day and it didn't get better. Normal left eye. No scotomas. No pain w/ eye movements Appearance: Alert.? Oriented X3.? No acute cardiopulmonary distress distress.? Head: Normocephalic, atraumatic, no step-offs or deformities Eye: minimal conjunctival injection to right eye. EOMI pain free. No hazey cornea. PERRL b/l CVS: Pulses normal.? Respiratory: No respiratory distress.? Abdomen: Soft and nontender.? Skin: ? Normal skin color. Extremities: 5/5 strength to bilateral upper and lower extremities Neuro: Oriented X 3.? No motor deficit.? No sensory deficit. Medications Administered Discontinued Medications Generic Name Dose Route Start Last Admin Trade Name Freq PRN Reason Stop Dose Admin Tobramycin Sulfate 2 drop 05/12/24 00:35 05/12/24 00:44 Tobramycin Sulfate 0.3% Jessica Op 5 Ml Btl EYE-RIGHT 05/12/24 00:36 2 drop ONCE ONE Administration Medical Decision Making Medical Decision Making MDM Narrative: Patient's right-sided pain in the eye clinically conjunctivitis ultrasound negative for retinal detachment will prescribe tobramycin eye drops Differential Diagnosis Differential Diagnoses: The differential diagnosis associated with the presentation includes Glaucoma/conjunctivitis/internal derangement Discharge Plan Discharge Clinical Impression: Bacterial conjunctivitis Patient Disposition: Home, Self-Care Instructions: Conjunctivitis (ED) Additional Instructions: Use eyedrops as prescribed Report to the ER if loss of vision or double vision Prescriptions: New tobramycin 0.3 % drops 2 drp ophthalmic (eye) Q4H Qty: 5 0RF No Action doxepin 25 mg capsule 1 cap PO BEDTIME metoprolol succinate 50 mg tablet extended release 24 hr 1.5 tab PO DAILY metformin 500 mg tablet 1 tab PO BID gemfibrozil 600 mg Tablet 600 mg PO BIDAC 30 Days Qty: 60 0RF oseltamivir [Tamiflu] 75 mg capsule 75 mg PO BID 5 Days Qty: 10 0RF ondansetron 4 mg tablet,disintegrating 4 mg PO Q8H PRN (Reason: nausea and vomiting) Qty: 7 0RF Stand Alone Forms: Work/School Release Interventions: ED Discharge Assessment Last Done: 05/12/24 00:54 Discharge Date/Time: 05/12/24 00:54 Print Language: Bengali
--- NOTE | 2024-05-11 20:43 | PC.NURSE ---
pt from lobby, assume care of pt at this time
[2024-05-12] MEDS: Tobramycin Sulfate 0.3% Sol Op 5 ML BTL 2 DROP EYE-RIGHT (00:44)
[2024-05-12 00:54] VITALS: BP 153/81; PULSE 91; RESP 18; TEMP 37.1
== END 2024-05-12 00:54 | disposition home or self-care (01) ==
PROVIDERS: Emergency Provider Internal Medicine; PCP Internal Medicine
DX: H57.89 Other specified disorders of eye and adnexa (principal); I10 Essential (primary) hypertension; E11.9 Type 2 diabetes mellitus without complications
CPT/HCPCS: 99283

== ENCOUNTER 2024-06-06 04:27 | Emergency (ER) | payer OTHER, SELFPAY ==
[2024-06-06 05:03] VITALS: BP 131/71; PULSE 107; RESP 18; TEMP 36.8; O2SAT 96; BMI 46.7
[2024-06-06] MEDS: Acetaminophen 325 MG TABLET 975 MG PO (05:25)
[2024-06-06] MEDS: Ibuprofen 800 MG TABLET PO (05:25)
[2024-06-06 07:00] LABS: CT PCR NOT DETECTED (Not Detect.); NG PCR NOT DETECTED (Not Detect.)
== END 2024-06-06 11:15 | disposition left against medical advice (07) ==
PROVIDERS: Emergency Provider Emergency Medicine; PCP Internal Medicine
DX: N48.89 Other specified disorders of penis (principal); Z20.2 Contact with and (suspected) exposure to infections with a predominantly sexual mode of transmission; E11.9 Type 2 diabetes mellitus without complications; I10 Essential (primary) hypertension; Z53.21 Procedure and treatment not carried out due to patient leaving prior to being seen by health care provider
CPT/HCPCS: 87491; 87591; 99283

== ENCOUNTER 2024-12-15 21:21 | Emergency (ER) | payer OTHER, SELFPAY ==
--- NOTE | ~2024-12-15 | CT_ITS ---
CLINICAL HISTORY: trauma CT head without contrast Comparison: None Findings: No acute intracranial hemorrhage. No midline shift or hydrocephalus. Asymmetry of the lateral ventricles, right larger than left. This is likely on a congenital basis. No large arterial territorial infarction by CT. Retention cysts of the left maxillary sinus. Mild nasal bone deformities appear old. Imaged mastoid air cells are well aerated. No acute skull fracture. Scalp irregularity is likely due to scarring. IMPRESSION: 1. No acute intracranial abnormality by CT. This document has been electronically signed by: Rayo Tobias MD on 12/16/2024 03:02:08
[2024-12-15 21:56] VITALS: BP 144/80; PULSE 91; RESP 18; TEMP 36.7; O2SAT 97; BMI 47.0
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
[2024-12-16] MEDS: Meclizine HCl 25 MG TABLET 50 MG PO (03:40)
[2024-12-16 03:45] VITALS: BP 122/82; PULSE 72; RESP 16; TEMP 37.2; O2SAT 99
== END 2024-12-16 03:45 | disposition home or self-care (01) ==
PROVIDERS: Emergency Provider Emergency Medicine; PCP Internal Medicine
DX: S00.93XA Contusion of unspecified part of head, initial encounter (principal); Y04.2XXA Assault by strike against or bumped into by another person, initial encounter; Y93.F9 Activity, other caregiving; Y92.129 Unspecified place in nursing home as the place of occurrence of the external cause; Y99.0 Civilian activity done for income or pay
CPT/HCPCS: 70450; 99284

== ENCOUNTER → 2024-12-15 23:45 | Outpatient (BNV) | payer OTHER, SELFPAY | PROVIDERS: Emergency Provider Emergency Medicine; PCP Internal Medicine; Visit Provider Radiology Neuroradiology | DX: R51.9 Headache, unspecified (principal); R42 Dizziness and giddiness; Z04.2 Encounter for examination and observation following work accident; Y04.8XXA Assault by other bodily force, initial encounter | CPT/HCPCS: 70450 ==